=== PATIENT | male | born 1945 | race Hispanic/Latino ===

== ENCOUNTER 2021-12-03 16:07 | Inpatient (IN) | payer MEDICARE ==
[2021-12-04 06:01] LABS: Basophils % (Auto) 0.5 % (0.0-1.8); Eosinophils # (Auto) 0.2 K/mm3 (0.0-0.4); Eosinophils % (Auto) 2.4 % (0.0-4.3); Hematocrit 40.6 % (35.5-45.6); Hemoglobin 13.1 gm/dl (11.8-15.2); Lymphocytes # (Auto) 1.2 K/mm3 (1.2-5.4); Lymphocytes % (Auto) 19.4 % (13.4-35.0); Mean Corpuscular HGB Conc 32 % (32-34); Mean Corpuscular Volume 83 fl (84-94); Monocytes # (Auto) 0.6 K/mm3 (0.0-0.8); Monocytes % (Auto) 10.1 % (0.0-7.3); Platelet Count 298 K/mm3 (140-440); Red Blood Count 4.91 M/mm3 (3.65-5.03); Red Cell Distribution Width 16.2 % (13.2-15.2)
[2021-12-04 06:19] LABS: Calcium 9.4 mg/dL (8.4-10.2); Chol/HDL Ratio 2.81 %
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
[2021-12-04] MEDS ORDERED: NON-FORMULARY EACH (Paroxetine Hcl [Paroxetine] 40 MG Tablet) PO SCH (10:00)
[2021-12-04] MEDS ORDERED: metFORMIN 500 MG TAB PO SCH (10:00)
[2021-12-04] MEDS ORDERED: NON-FORMULARY EACH (Rosuvastatin Calcium [Crestor] 20 MG Tablet) PO SCH (10:00)
[2021-12-04] MEDS ORDERED: NON-FORMULARY EACH (Sitagliptin Phosphate [Januvia] 100 MG Tablet) PO SCH (10:00)
[2021-12-04] MEDS ORDERED: FENOFIBRATE MICRONIZED 134 MG PO SCH (10:00)
[2021-12-04] MEDS ORDERED: GLIMEPIRIDE 2 MG TAB PO SCH (10:00)
[2021-12-04] MEDS: FAMOTIDINE 20 MG TAB PO SCH (10:11)
[2021-12-04] MEDS: FUROSEMIDE 40 MG TAB PO SCH (10:11)
[2021-12-04] MEDS: MONTELUKAST 10 MG TAB PO SCH (10:11)
[2021-12-04] MEDS: PARoxetine 20 MG TAB PO SCH (10:11)
[2021-12-04] MEDS: PANTOPRAZOLE 40 MG TAB PO SCH (10:11)
[2021-12-04] MEDS: SPIRONOLACTONE 25 MG TAB PO SCH (10:12)
[2021-12-04] MEDS: carvediloL 6.25 MG TAB PO SCH ×2 (10:12→21:52)
[2021-12-04] MEDS: FENOFIBRATE 145 MG TAB PO SCH (10:13)
[2021-12-04] MEDS: LINAGLIPTIN 5 MG TAB PO SCH (12:47)
[2021-12-04] MEDS: traZODone 50 MG TAB PO SCH (21:51)
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
[2021-12-05] MEDS: MONTELUKAST 10 MG TAB PO SCH (09:31)
[2021-12-05] MEDS: FUROSEMIDE 40 MG TAB PO SCH (09:31)
[2021-12-05] MEDS: PARoxetine 20 MG TAB PO SCH (09:32)
[2021-12-05] MEDS: carvediloL 6.25 MG TAB PO SCH ×2 (09:32→21:05)
[2021-12-05] MEDS: SPIRONOLACTONE 25 MG TAB PO SCH (09:32)
[2021-12-05] MEDS: FENOFIBRATE 145 MG TAB PO SCH (09:32)
[2021-12-05] MEDS: PANTOPRAZOLE 40 MG TAB PO SCH (09:32)
--- NOTE | 2021-12-05 09:32 | Progress Note ---
Subjective Date of service: 12/05/21 Principal diagnosis: MDD Subjective Comment: The patient was seen today. He is calm, and cooperative. He says he slept well. He denies SI/HI. He says "I ain't been trying to hurt myself." He denies hallucinations. REVIEW OF SYSTEMS Unable to assess MENTAL STATUS EXAMINATION Unable to assess Assessment and Plan (1) MDD Current Visit: Yes Status: Acute Treatment Plan Patient admitted for inpatient psychiatric evaluation, medication adjustment and close monitoring The patient's behavior, mood, sleep and appetite will be closely monitored. Patient enrolled in individual and group therapeutic sessions and encouraged to attend. Patient provided with a safe and structured environment. Patient's physical health needs will be addressed by the Hospitalist. Hospitalist Consulted Labs including CBC, CMP, Lipid profile and Hemoglobin A1C levels ordered for baseline reference Social Assessment will be completed and the City Editor will work with patient and family to ensure a suitable and safe disposition Medication adjustment will be made as clinically indicated Continued home meds Usual Wellness Jain/Preservation: - Start Trazodone 50 mg po QHS & 50 mg po QHS PRN between 10 PM & 2 AM for insomnia - Start Melatonin 5 mg po QHS to promote circadian rhythm The patient agreed on the treatment plan, understood the risk, benefit, alternative treatment, potential consequence of no treatment, and gave informed consent. Estimated days: Post hospital care: primary care provider, psychiatric provider Case staffed with Dr. Dejesus Medications and Allergies Allergies Allergy/AdvReac Type Severity Reaction Status Date / Time No Known Allergies Allergy Unverified 12/03/21 16:09 Home Medications Medication Instructions Recorded Confirmed Last Taken Type Amoxicillin/K Clav Tab [Augmentin 1 tab PO Q12HR 12/04/21 12/04/21 12/03/21 History 875 mg] Apixaban [Eliquis] 5 mg PO BID 12/04/21 12/04/21 Unknown History Famotidine [Acid-Pep] 20 mg PO QDAY 12/04/21 12/04/21 Unknown History Fenofibrate,Micronized 134 mg PO QDAY 12/04/21 12/04/21 Unknown History [Fenofibrate] Furosemide [Lasix] 40 mg PO QDAY 12/04/21 12/04/21 Unknown History Glimepiride [Amaryl] 2 mg PO QDAY 12/04/21 12/04/21 Unknown History Montelukast [Singulair] 10 mg PO QDAY 12/04/21 12/04/21 Unknown History PARoxetine HCL [PARoxetine] 40 mg PO QA 12/04/21 12/04/21 Unknown History Pantoprazole Sodium 40 mg PO QDAY 12/04/21 12/04/21 Unknown History Rosuvastatin Calcium [Crestor] 20 mg PO QDAY 12/04/21 12/04/21 Unknown History Sitagliptin Phosphate [Januvia] 100 mg PO QDAY 12/04/21 12/04/21 Unknown History Spironolactone [Aldactone] 25 mg PO QDAY 12/04/21 12/04/21 Unknown History carvediloL [Coreg] 6.25 mg PO BID 12/04/21 12/04/21 Unknown History metFORMIN [Glucophage] 1,000 mg PO QDAY 12/04/21 12/04/21 Unknown History traZODone [Desyrel] 150 mg PO QHS 12/04/21 12/04/21 Unknown History Active Meds: Active Medications Amoxicillin/Clavulanate Potassium (Amoxicillin/K Clav 875/125mg Tab) 1 each PO Q12HR [facility]; Protocol Atorvastatin Calcium (Atorvastatin 40 Mg Tab) 40 mg PO QHS [facility] Last Admin: 12/04/21 21:52 Dose: 40 mg Carvedilol (Carvedilol 6.25 Mg Tab) 6.25 mg PO BID [facility] Last Admin: 12/04/21 21:52 Dose: 6.25 mg Famotidine (Famotidine 20 Mg Tab) 20 mg PO QDAY [facility] Last Admin: 12/04/21 10:11 Dose: 20 mg Fenofibrate (Fenofibrate 145 Mg Tab) 145 mg PO DAILY [facility] Last Admin: 12/04/21 10:13 Dose: 145 mg Furosemide (Furosemide 40 Mg Tab) 40 mg PO QDAY [facility] Last Admin: 12/04/21 10:11 Dose: 40 mg Glimepiride (Glimepiride 2 Mg Tab) 2 mg PO QDDIAB [facility] Linagliptin (Linagliptin 5 Mg Tab) 5 mg PO QDAY [facility] Last Admin: 12/04/21 12:47 Dose: 5 mg Metformin HCl (Metformin 500 Mg Tab) 1,000 mg PO QDDIAB [facility] Montelukast Sodium (Montelukast 10 Mg Tab) 10 mg PO QDAY [facility] Last Admin: 12/04/21 10:11 Dose: 10 mg Pantoprazole Sodium (Pantoprazole 40 Mg Tab) 40 mg PO QDAY [facility] Last Admin: 12/04/21 10:11 Dose: 40 mg Paroxetine HCl (Paroxetine 20 Mg Tab) 40 mg PO QAM [facility] Last Admin: 12/04/21 10:11 Dose: 40 mg Spironolactone (Spironolactone 25 Mg Tab) 25 mg PO QDAY [facility] Last Admin: 12/04/21 10:12 Dose: 25 mg Trazodone HCl (Trazodone 50 Mg Tab) 150 mg PO QHS [facility] Last Admin: 12/04/21 21:51 Dose: 150 mg Results - Results Labs/Vitals: Laboratory Last Values WBC 6.3 K/mm3 (4.5-11.0) 12/04/21 05:19 RBC 4.91 M/mm3 (3.65-5.03) 12/04/21 05:19 Hgb 13.1 gm/dl (11.8-15.2) 12/04/21 05:19 Hct 40.6 % (35.5-45.6) 12/04/21 05:19 MCV 83 fl (84-94) L 12/04/21 05:19 MCH 27 pg (28-32) L 12/04/21 05:19 MCHC 32 % (32-34) 12/04/21 05:19 RDW 16.2 % (13.2-15.2) H 12/04/21 05:19 Plt Count 298 K/mm3 (140-440) 12/04/21 05:19 Lymph % (Auto) 19.4 % (13.4-35.0) 12/04/21 05:19 [place] % (Auto) 10.1 % (0.0-7.3) H 12/04/21 05:19 Eos % (Auto) 2.4 % (0.0-4.3) 12/04/21 05:19 Baso % (Auto) 0.5 % (0.0-1.8) 12/04/21 05:19 Lymph # (Auto) 1.2 K/mm3 (1.2-5.4) 12/04/21 05:19 [place] # (Auto) 0.6 K/mm3 (0.0-0.8) 12/04/21 05:19 Eos # (Auto) 0.2 K/mm3 (0.0-0.4) 12/04/21 05:19 Baso # (Auto) 0.0 K/mm3 (0.0-0.1) 12/04/21 05:19 Seg Neutrophils % 67.6 % (40.0-70.0) 12/04/21 05:19 Seg Neutrophils # 4.2 K/mm3 (1.8-7.7) 12/04/21 05:19 Sodium 141 mmol/L (137-145) 12/04/21 05:19 Potassium 3.8 mmol/L (3.6-5.0) 12/04/21 05:19 Chloride 105.4 mmol/L (98-107) 12/04/21 05:19 Carbon Dioxide 24 mmol/L (22-30) 12/04/21 05:19 Anion Gap 15 mmol/L 12/04/21 05:19 BUN 23 mg/dL (9-20) H 12/04/21 05:19 Creatinine 1.2 mg/dL (0.8-1.3) 12/04/21 05:19 Estimated GFR 59 ml/min 12/04/21 05:19 BUN/Creatinine Ratio 19 % 12/04/21 05:19 Glucose 140 mg/dL (75-100) H 12/04/21 05:19 POC Glucose 137 mg/dL (70-105) H 12/05/21 07:22 Hemoglobin A1c 5.7 % (4-6) 12/04/21 05:19 Calcium 9.4 mg/dL (8.4-10.2) 12/04/21 05:19 Total Bilirubin 0.40 mg/dL (0.1-1.2) 12/04/21 05:19 AST 15 units/L (5-40) 12/04/21 05:19 ALT 9 units/L (7-56) 12/04/21 05:19 Alkaline Phosphatase 48 units/L (35-129) 12/04/21 05:19 Total Protein 7.1 g/dL (6.3-8.2) 12/04/21 05:19 Albumin 4.0 g/dL (3.9-5) 03/05/22 05:19 Albumin/Globulin Ratio 1.3 % 12/04/21 05:19 Triglycerides 76 mg/dL (2-149) 12/04/21 05:19 Cholesterol 135 mg/dL (50-199) 12/04/21 05:19 LDL Cholesterol Direct 70 mg/dL (50-130) 12/04/21 05:19 HDL Cholesterol 48 mg/dL (40-59) 12/04/21 05:19 Cholesterol/HDL Ratio 2.81 % 12/04/21 05:19 TSH 1.110 mlU/mL (0.270-4.200) 12/04/21 05:19 Last Vital Signs Temp 97.4 F L 12/05/21 08:21 Pulse 103 H 12/05/21 08:21 Resp 18 12/05/21 08:21 BP 111/63 12/05/21 08:21 Pulse Ox 97 12/05/21 08:21
[2021-12-05] MEDS: metFORMIN 500 MG TAB PO SCH (09:33)
[2021-12-05] MEDS: FAMOTIDINE 20 MG TAB PO SCH (09:33)
[2021-12-05] MEDS: GLIMEPIRIDE 2 MG TAB PO SCH (09:34)
[2021-12-05] MEDS ORDERED: APIXABAN 5 MG TAB PO SCH (10:00)
[2021-12-05] MEDS: LINAGLIPTIN 5 MG TAB PO SCH (11:21)
[2021-12-05] MEDS: AMOXICILLIN/K CLAV 875/125MG TAB PO SCH ×2 (11:21→21:05)
--- NOTE | 2021-12-05 19:18 | Progress Note ---
Assessment and Plan - Patient Problems (1) Vascular dementia Current Visit: Yes Status: Acute Qualifiers: Dementia behavioral disturbance: with behavioral disturbance Qualified Code(s): F01.51 - Vascular dementia with behavioral disturbance Plan to address problem: Verbal prompting, verbal redirection, benzodiazepine therapy as clinically indicated. (2) GERD (gastroesophageal reflux disease) Current Visit: Yes Status: Chronic Qualifiers: Esophagitis presence: without esophagitis Qualified Code(s): K21.9 - Gastro-esophageal reflux disease without esophagitis Plan to address problem: PPI therapy, supportive care. (3) Hyperlipidemia Current Visit: Yes Status: Chronic Qualifiers: Hyperlipidemia type: mixed hyperlipidemia Qualified Code(s): E78.2 - Mixed hyperlipidemia Plan to address problem: Low-cholesterol diet, lipid panel. (4) Hypertension Current Visit: Yes Status: Chronic Qualifiers: Hypertension type: primary hypertension Qualified Code(s): I10 - Essential (primary) hypertension Plan to address problem: Monitor blood pressure every shift, continue medical management (5) Bipolar disorder Current Visit: Yes Status: Acute Plan to address problem: Continue medical management as per mental health team (6) Cerebral atherosclerosis Current Visit: Yes Status: Acute Plan to address problem: Risk factor reduction, continue antiplatelet therapy, (7) Advance care planning Current Visit: Yes Status: Acute Plan to address problem: Disease education conducted, care plan discussed, diagnoses discussed, prognosis discussed, patient is full code. +30 minutes. History Interval history: 76 YO Male with Vascular Dementia with Behavioral Disturbance, Cerebral Atherosclerosis, HTN, DM, GERD,HLD, Bipolar Disorder, Schizophrenia, currently on therapeutic anticoagulation admitted to [facility] for psychiatric stabilization. Consult placed by Dr. Phillips for medical management. Pt seen and evaluated in recreation room. Patient has diminished cognition but appears to be at baseline level of cognition and function. NO reported nursing events. Hospitalist Physical - Constitutional Vitals: Temp Pulse Resp BP Pulse Ox 97.4 F L 103 H 18 111/63 97 12/05/21 08:21 12/05/21 09:32 12/05/21 08:21 12/05/21 09:32 12/05/21 08:21 General appearance: Present: no acute distress, well-nourished - EENT Eyes: Present: PERRL ENT: hearing decreased - Neck Neck: Present: supple - Respiratory Respiratory effort: normal Respiratory: bilateral: CTA - Cardiovascular Rhythm: regular Heart Sounds: Present: S1 & S2 - Extremities Extremities: no ischemia Peripheral Pulses: within normal limits - Abdominal General gastrointestinal: soft, non-tender, non-distended - Integumentary Integumentary: Present: clear - Psychiatric Psychiatric: no intact judgment & insight, no memory intact, cooperative - Neurologic Neurologic: CNII-XII intact Results - Labs CBC & Chem 7: 12/04/21 05:19 12/04/21 05:19 Labs: Laboratory Last Values WBC 6.3 K/mm3 (4.5-11.0) 12/04/21 05:19 RBC 4.91 M/mm3 (3.65-5.03) 12/04/21 05:19 Hgb 13.1 gm/dl (11.8-15.2) 12/04/21 05:19 Hct 40.6 % (35.5-45.6) 12/04/21 05:19 MCV 83 fl (84-94) L 12/04/21 05:19 MCH 27 pg (28-32) L 12/04/21 05:19 MCHC 32 % (32-34) 12/04/21 05:19 RDW 16.2 % (13.2-15.2) H 12/04/21 05:19 Plt Count 298 K/mm3 (140-440) 12/04/21 05:19 Lymph % (Auto) 19.4 % (13.4-35.0) 12/04/21 05:19 [place] % (Auto) 10.1 % (0.0-7.3) H 12/04/21 05:19 Eos % (Auto) 2.4 % (0.0-4.3) 12/04/21 05:19 Baso % (Auto) 0.5 % (0.0-1.8) 12/04/21 05:19 Lymph # (Auto) 1.2 K/mm3 (1.2-5.4) 12/04/21 05:19 [place] # (Auto) 0.6 K/mm3 (0.0-0.8) 12/04/21 05:19 Eos # (Auto) 0.2 K/mm3 (0.0-0.4) 12/04/21 05:19 Baso # (Auto) 0.0 K/mm3 (0.0-0.1) 12/04/21 05:19 Seg Neutrophils % 67.6 % (40.0-70.0) 12/04/21 05:19 Seg Neutrophils # 4.2 K/mm3 (1.8-7.7) 12/04/21 05:19 Sodium 141 mmol/L (137-145) 12/04/21 05:19 Potassium 3.8 mmol/L (3.6-5.0) 12/04/21 05:19 Chloride 105.4 mmol/L (98-107) 12/04/21 05:19 Carbon Dioxide 24 mmol/L (22-30) 12/04/21 05:19 Anion Gap 15 mmol/L 12/04/21 05:19 BUN 23 mg/dL (9-20) H 12/04/21 05:19 Creatinine 1.2 mg/dL (0.8-1.3) 12/04/21 05:19 Estimated GFR 59 ml/min 12/04/21 05:19 BUN/Creatinine Ratio 19 % 12/04/21 05:19 Glucose 140 mg/dL (75-100) H 12/04/21 05:19 POC Glucose 137 mg/dL (70-105) H 12/05/21 07:22 Hemoglobin A1c 5.7 % (4-6) 12/04/21 05:19 Calcium 9.4 mg/dL (8.4-10.2) 12/04/21 05:19 Total Bilirubin 0.40 mg/dL (0.1-1.2) 12/04/21 05:19 AST 15 units/L (5-40) 12/04/21 05:19 ALT 9 units/L (7-56) 12/04/21 05:19 Alkaline Phosphatase 48 units/L (35-129) 12/04/21 05:19 Total Protein 7.1 g/dL (6.3-8.2) 12/04/21 05:19 Albumin 4.0 g/dL (3.9-5) 12/04/21 05:19 Albumin/Globulin Ratio 1.3 % 12/04/21 05:19 Triglycerides 76 mg/dL (2-149) 12/04/21 05:19 Cholesterol 135 mg/dL (50-199) 12/04/21 05:19 LDL Cholesterol Direct 70 mg/dL (50-130) 12/04/21 05:19 HDL Cholesterol 48 mg/dL (40-59) 12/04/21 05:19 Cholesterol/HDL Ratio 2.81 % 12/04/21 05:19 TSH 1.110 mlU/mL (0.270-4.200) 12/04/21 05:19 [place]/IV: Voiding Method Diaper Active Medications - Current Medications Current Medications: Generic Name Dose Route Start Last Admin Trade Name Freq PRN Reason Stop Dose Admin Amoxicillin/Clavulanate Potassium 1 each 12/05/21 10:00 12/05/21 11:21 Amoxicillin/K Clav 875/125mg Tab PO 12/10/21 23:59 1 each Q12HR TANIYA Administration Protocol Apixaban 5 mg 12/05/21 22:00 Apixaban 5 Mg Tab PO Q12HR TANIYA Protocol Atorvastatin Calcium 40 mg 12/04/21 22:00 12/04/21 21:52 Atorvastatin 40 Mg Tab PO 40 mg QHS TANIYA Administration Carvedilol 6.25 mg 12/04/21 10:00 12/05/21 09:32 Carvedilol 6.25 Mg Tab PO 6.25 mg BID TANIYA Administration Famotidine 20 mg 12/04/21 10:00 12/05/21 09:33 Famotidine 20 Mg Tab PO 20 mg QDAY TANIYA Administration Fenofibrate 145 mg 12/04/21 10:00 12/05/21 09:32 Fenofibrate 145 Mg Tab PO 145 mg DAILY TANIYA Administration Furosemide 40 mg 12/04/21 10:00 12/05/21 09:31 Furosemide 40 Mg Tab PO 40 mg QDAY TANIYA Administration Glimepiride 2 mg 12/05/21 08:00 12/05/21 09:34 Glimepiride 2 Mg Tab PO 2 mg QDDIAB TANIYA Administration Linagliptin 5 mg 12/04/21 10:00 12/05/21 11:21 Linagliptin 5 Mg Tab PO 5 mg QDAY TANIYA Administration Metformin HCl 1,000 mg 12/05/21 08:00 12/05/21 09:33 Metformin 500 Mg Tab PO 1,000 mg QDDIAB TANIYA Administration Montelukast Sodium 10 mg 12/04/21 10:00 12/05/21 09:31 Montelukast 10 Mg Tab PO 10 mg QDAY TANIYA Administration Pantoprazole Sodium 40 mg 12/04/21 10:00 12/05/21 09:32 Pantoprazole 40 Mg Tab PO 40 mg QDAY TANIYA Administration Paroxetine HCl 40 mg 12/04/21 10:00 12/05/21 09:32 Paroxetine 20 Mg Tab PO 40 mg QAM TANIYA Administration Spironolactone 25 mg 12/04/21 10:00 12/05/21 09:32 Spironolactone 25 Mg Tab PO 25 mg QDAY TANIYA Administration Trazodone HCl 150 mg 12/04/21 22:00 12/04/21 21:51 Trazodone 50 Mg Tab PO 150 mg QHS TANIYA Administration
[2021-12-05] MEDS: traZODone 50 MG TAB PO SCH (21:06)
[2021-12-05] MEDS: APIXABAN 5 MG TAB PO SCH (21:07)
--- NOTE | 2021-12-06 08:53 | Progress Note ---
Subjective Date of service: 12/06/21 Principal diagnosis: MDD Subjective Comment: The patient was seen this morning resting in bed. He states he is doing alright. The patient states he slept all night. He states depression as " alright." unable to rate. He denies any current suicidal homicidal ideation and denies hallucinations. REVIEW OF SYSTEMS Unable to assess MENTAL STATUS EXAMINATION Unable to assess Assessment and Plan (1) MDD Current Visit: Yes Status: Acute Treatment Plan Patient admitted for inpatient psychiatric evaluation, medication adjustment and close monitoring The patient's behavior, mood, sleep and appetite will be closely monitored. Patient enrolled in individual and group therapeutic sessions and encouraged to attend. Patient provided with a safe and structured environment. Patient's physical health needs will be addressed by the Hospitalist. Hospitalist Consulted Labs including CBC, CMP, Lipid profile and Hemoglobin A1C levels ordered for baseline reference Social Assessment will be completed and the Door Attendant will work with patient and family to ensure a suitable and safe disposition Medication adjustment will be made as clinically indicated Continued home meds [employer]: - Start Trazodone 50 mg po QHS & 50 mg po QHS PRN between 10 PM & 2 AM for insomnia - Start Melatonin 5 mg po QHS to promote circadian rhythm The patient agreed on the treatment plan, understood the risk, benefit, alternative treatment, potential consequence of no treatment, and gave informed consent. Estimated days: Post hospital care: primary care provider, psychiatric provider Case staffed with Dr. Dejesus Medications and Allergies Medications and Allergies Allergies Allergy/AdvReac Type Severity Reaction Status Date / Time No Known Allergies Allergy Unverified 12/03/21 16:09 Home Medications Medication Instructions Recorded Confirmed Last Taken Type Amoxicillin/K Clav Tab [Augmentin 1 tab PO Q12HR 12/04/21 12/04/21 12/03/21 History 875 mg] Apixaban [Eliquis] 5 mg PO BID 12/04/21 12/04/21 Unknown History Famotidine [Acid-Pep] 20 mg PO QDAY 12/04/21 12/04/21 Unknown History Fenofibrate,Micronized 134 mg PO QDAY 12/04/21 12/04/21 Unknown History [Fenofibrate] Furosemide [Lasix] 40 mg PO QDAY 12/04/21 12/04/21 Unknown History Glimepiride [Amaryl] 2 mg PO QDAY 12/04/21 12/04/21 Unknown History Montelukast [Singulair] 10 mg PO QDAY 12/04/21 12/04/21 Unknown History PARoxetine HCL [PARoxetine] 40 mg PO QAM 12/04/21 12/04/21 Unknown History Pantoprazole Sodium 40 mg PO QDAY 12/04/21 12/04/21 Unknown History Rosuvastatin Calcium [Crestor] 20 mg PO QDAY 12/04/21 12/04/21 Unknown History Sitagliptin Phosphate [Januvia] 100 mg PO QDAY 12/04/21 12/04/21 Unknown History Spironolactone [Aldactone] 25 mg PO QDAY 12/04/21 12/04/21 Unknown History carvediloL [Coreg] 6.25 mg PO BID 12/04/21 12/04/21 Unknown History metFORMIN [Glucophage] 1,000 mg PO QDAY 12/04/21 12/04/21 Unknown History traZODone [Desyrel] 150 mg PO QHS 12/04/21 12/04/21 Unknown History Active Meds: Active Medications Amoxicillin/Clavulanate Potassium (Amoxicillin/K Clav 875/125mg Tab) 1 each PO Q12HR [facility]; Protocol Stop: 12/10/21 23:59 Last Admin: 12/05/21 21:05 Dose: 1 each Apixaban (Apixaban 5 Mg Tab) 5 mg PO Q12HR [facility]; Protocol Last Admin: 12/05/21 21:07 Dose: 5 mg Atorvastatin Calcium (Atorvastatin 40 Mg Tab) 40 mg PO QHS [facility] Last Admin: 12/05/21 21:07 Dose: 40 mg Carvedilol (Carvedilol 6.25 Mg Tab) 6.25 mg PO BID [facility] Last Admin: 12/05/21 21:05 Dose: 6.25 mg Famotidine (Famotidine 20 Mg Tab) 20 mg PO QDAY [facility] Last Admin: 12/05/21 09:33 Dose: 20 mg Fenofibrate (Fenofibrate 145 Mg Tab) 145 mg PO DAILY [facility] Last Admin: 12/05/21 09:32 Dose: 145 mg Furosemide (Furosemide 40 Mg Tab) 40 mg PO QDAY [facility] Last Admin: 12/05/21 09:31 Dose: 40 mg Glimepiride (Glimepiride 2 Mg Tab) 2 mg PO QDDIAB [facility] Last Admin: 12/05/21 09:34 Dose: 2 mg Linagliptin (Linagliptin 5 Mg Tab) 5 mg PO QDAY [facility] Last Admin: 12/05/21 11:21 Dose: 5 mg Metformin HCl (Metformin 500 Mg Tab) 1,000 mg PO QDDIAB [facility] Last Admin: 12/05/21 09:33 Dose: 1,000 mg Montelukast Sodium (Montelukast 10 Mg Tab) 10 mg PO QDAY [facility] Last Admin: 12/05/21 09:31 Dose: 10 mg Pantoprazole Sodium (Pantoprazole 40 Mg Tab) 40 mg PO QDAY [facility] Last Admin: 12/05/21 09:32 Dose: 40 mg Paroxetine HCl (Paroxetine 20 Mg Tab) 40 mg PO QAM [facility] Last Admin: 12/05/21 09:32 Dose: 40 mg Spironolactone (Spironolactone 25 Mg Tab) 25 mg PO QDAY [facility] Last Admin: 12/05/21 09:32 Dose: 25 mg Trazodone HCl (Trazodone 50 Mg Tab) 150 mg PO QHS [facility] Last Admin: 12/05/21 21:06 Dose: 150 mg Results - Results Labs/Vitals: Laboratory Last Values WBC 6.3 K/mm3 (4.5-11.0) 12/04/21 05:19 RBC 4.91 M/mm3 (3.65-5.03) 12/04/21 05:19 Hgb 13.1 gm/dl (11.8-15.2) 12/04/21 05:19 Hct 40.6 % (35.5-45.6) 12/04/21 05:19 MCV 83 fl (84-94) L 12/04/21 05:19 MCH 27 pg (28-32) L 12/04/21 05:19 MCHC 32 % (32-34) 12/04/21 05:19 RDW 16.2 % (13.2-15.2) H 12/04/21 05:19 Plt Count 298 K/mm3 (140-440) 12/04/21 05:19 Lymph % (Auto) 19.4 % (13.4-35.0) 12/04/21 05:19 [place] % (Auto) 10.1 % (0.0-7.3) H 12/04/21 05:19 Eos % (Auto) 2.4 % (0.0-4.3) 12/04/21 05:19 Baso % (Auto) 0.5 % (0.0-1.8) 12/04/21 05:19 Lymph # (Auto) 1.2 K/mm3 (1.2-5.4) 12/04/21 05:19 [place] # (Auto) 0.6 K/mm3 (0.0-0.8) 12/04/21 05:19 Eos # (Auto) 0.2 K/mm3 (0.0-0.4) 12/04/21 05:19 Baso # (Auto) 0.0 K/mm3 (0.0-0.1) 12/04/21 05:19 Seg Neutrophils % 67.6 % (40.0-70.0) 12/04/21 05:19 Seg Neutrophils # 4.2 K/mm3 (1.8-7.7) 12/04/21 05:19 Sodium 141 mmol/L (137-145) 12/04/21 05:19 Potassium 3.8 mmol/L (3.6-5.0) 12/04/21 05:19 Chloride 105.4 mmol/L (98-107) 12/04/21 05:19 Carbon Dioxide 24 mmol/L (22-30) 12/04/21 05:19 Anion Gap 15 mmol/L 12/04/21 05:19 BUN 23 mg/dL (9-20) H 12/04/21 05:19 Creatinine 1.2 mg/dL (0.8-1.3) 12/04/21 05:19 Estimated GFR 59 ml/min 12/04/21 05:19 BUN/Creatinine Ratio 19 % 12/04/21 05:19 Glucose 140 mg/dL (75-100) H 12/04/21 05:19 POC Glucose 125 mg/dL (70-105) H 12/06/21 08:20 Hemoglobin A1c 5.7 % (4-6) 12/04/21 05:19 Calcium 9.4 mg/dL (8.4-10.2) 12/04/21 05:19 Total Bilirubin 0.40 mg/dL (0.1-1.2) 12/04/21 05:19 AST 15 units/L (5-40) 12/04/21 05:19 ALT 9 units/L (7-56) 12/04/21 05:19 Alkaline Phosphatase 48 units/L (35-129) 12/04/21 05:19 Total Protein 7.1 g/dL (6.3-8.2) 12/04/21 05:19 Albumin 4.0 g/dL (3.9-5) 12/04/21 05:19 Albumin/Globulin Ratio 1.3 % 12/04/21 05:19 Triglycerides 76 mg/dL (2-149) 12/04/21 05:19 Cholesterol 135 mg/dL (50-199) 12/04/21 05:19 LDL Cholesterol Direct 70 mg/dL (50-130) 12/04/21 05:19 HDL Cholesterol 48 mg/dL (40-59) 12/04/21 05:19 Cholesterol/HDL Ratio 2.81 % 12/04/21 05:19 TSH 1.110 mlU/mL (0.270-4.200) 12/04/21 05:19 Last Vital Signs Temp 98.5 F 12/05/21 19:12 Pulse 100 H 12/05/21 21:05 Resp 18 12/05/21 19:12 BP 136/65 12/05/21 21:05 Pulse Ox 95 12/05/21 19:12
[2021-12-06] MEDS: LINAGLIPTIN 5 MG TAB PO SCH (11:13)
[2021-12-06] MEDS: APIXABAN 5 MG TAB PO SCH ×2 (11:13→21:13)
[2021-12-06] MEDS: FAMOTIDINE 20 MG TAB PO SCH (11:13)
[2021-12-06] MEDS: MONTELUKAST 10 MG TAB PO SCH (11:13)
[2021-12-06] MEDS: PARoxetine 20 MG TAB PO SCH (11:14)
[2021-12-06] MEDS: AMOXICILLIN/K CLAV 875/125MG TAB PO SCH ×2 (11:14→21:14)
[2021-12-06] MEDS: PANTOPRAZOLE 40 MG TAB PO SCH (11:14)
[2021-12-06] MEDS: metFORMIN 500 MG TAB PO SCH (11:14)
[2021-12-06] MEDS: GLIMEPIRIDE 2 MG TAB PO SCH (11:15)
[2021-12-06] MEDS: FENOFIBRATE 145 MG TAB PO SCH (11:15)
[2021-12-06] MEDS: FUROSEMIDE 40 MG TAB PO SCH (11:15)
[2021-12-06] MEDS: SPIRONOLACTONE 25 MG TAB PO SCH (11:16)
[2021-12-06] MEDS: carvediloL 6.25 MG TAB PO SCH ×2 (11:19→21:13)
[2021-12-06] MEDS: traZODone 50 MG TAB PO SCH (21:14)
[2021-12-07] MEDS: GLIMEPIRIDE 2 MG TAB PO SCH (08:09)
[2021-12-07] MEDS: metFORMIN 500 MG TAB PO SCH (08:09)
[2021-12-07] MEDS: PANTOPRAZOLE 40 MG TAB PO SCH (09:23)
[2021-12-07] MEDS: MONTELUKAST 10 MG TAB PO SCH (09:23)
[2021-12-07] MEDS: PARoxetine 20 MG TAB PO SCH (09:23)
[2021-12-07] MEDS: SPIRONOLACTONE 25 MG TAB PO SCH (09:23)
[2021-12-07] MEDS: FUROSEMIDE 40 MG TAB PO SCH (09:23)
[2021-12-07] MEDS: AMOXICILLIN/K CLAV 875/125MG TAB PO SCH ×2 (09:24→22:02)
[2021-12-07] MEDS: LINAGLIPTIN 5 MG TAB PO SCH (09:24)
[2021-12-07] MEDS: FAMOTIDINE 20 MG TAB PO SCH (09:24)
[2021-12-07] MEDS: APIXABAN 5 MG TAB PO SCH ×2 (09:25→22:04)
[2021-12-07] MEDS: carvediloL 6.25 MG TAB PO SCH ×2 (09:25→22:02)
[2021-12-07] MEDS: FENOFIBRATE 145 MG TAB PO SCH (09:26)
--- NOTE | 2021-12-07 09:30 | Progress Note ---
Subjective Date of service: 12/07/21 Principal diagnosis: MDD Subjective Comment: 12/07/21: The patient was seen this morning. He is isolative. He states he is doing well. The patient reports sleep and appetite as good. He denies any current suicidal homicidal ideation and denies hallucinations. 12/06/21:The patient was seen this morning resting in bed. He states he is doing alright. The patient states he slept all night. He states depression as " alright." unable to rate. He denies any current suicidal homicidal ideation and denies hallucinations. REVIEW OF SYSTEMS Unable to assess MENTAL STATUS EXAMINATION Unable to assess Assessment and Plan (1) MDD Current Visit: Yes Status: Acute Treatment Plan Patient admitted for inpatient psychiatric evaluation, medication adjustment and close monitoring The patient's behavior, mood, sleep and appetite will be closely monitored. Patient enrolled in individual and group therapeutic sessions and encouraged to attend. Patient provided with a safe and structured environment. Patient's physical health needs will be addressed by the Hospitalist. Hospitalist Consulted Labs including CBC, CMP, Lipid profile and Hemoglobin A1C levels ordered for baseline reference Social Assessment will be completed and the Soil Science Technical Officer will work with shreyas mon and family to ensure a suitable and safe disposition Medication adjustment will be made as clinically indicated Continued home meds [employer]ervation: - Start Trazodone 50 mg po QHS & 50 mg po QHS PRN between 10 PM & 2 AM for insomnia - Start Melatonin 5 mg po QHS to promote circadian rhythm The patient agreed on the treatment plan, understood the risk, benefit, alternative treatment, potential consequence of no treatment, and gave informed consent. Estimated days: Post hospital care: primary care provider, psychiatric provider Case staffed with Dr. Dejesus Medications and Allergies Medications and Allergies Allergies Allergy/AdvReac Type Severity Reaction Status Date / Time No Known Allergies Allergy Unverified 12/03/21 16:09 Home Medications Medication Instructions Recorded Confirmed Last Taken Type Amoxicillin/K Clav Tab [Augmentin 1 tab PO Q12HR 12/04/21 12/04/21 12/03/21 History 875 mg] Apixaban [Eliquis] 5 mg PO BID 12/04/21 12/04/21 Unknown History Famotidine [Acid-Pep] 20 mg PO QDAY 12/04/21 12/04/21 Unknown History Fenofibrate,Micronized 134 mg PO QDAY 12/04/21 12/04/21 Unknown History [Fenofibrate] Furosemide [Lasix] 40 mg PO QDAY 12/04/21 12/04/21 Unknown History Glimepiride [Amaryl] 2 mg PO QDAY 12/04/21 12/04/21 Unknown History Montelukast [Singulair] 10 mg PO QDAY 12/04/21 12/04/21 Unknown History PARoxetine HCL [PARoxetine] 40 mg PO QA 12/04/21 12/04/21 Unknown History Pantoprazole Sodium 40 mg PO QDAY 12/04/21 12/04/21 Unknown History Rosuvastatin Calcium [Crestor] 20 mg PO QDAY 12/04/21 12/04/21 Unknown History Sitagliptin Phosphate [Januvia] 100 mg PO QDAY 12/04/21 12/04/21 Unknown History Spironolactone [Aldactone] 25 mg PO QDAY 12/04/21 12/04/21 Unknown History carvediloL [Coreg] 6.25 mg PO BID 12/04/21 12/04/21 Unknown History metFORMIN [Glucophage] 1,000 mg PO QDAY 12/04/21 12/04/21 Unknown History traZODone [Desyrel] 150 mg PO QHS 12/04/21 12/04/21 Unknown History Active Meds: Active Medications Amoxicillin/Clavulanate Potassium (Amoxicillin/K Clav 875/125mg Tab) 1 each PO Q12HR [facility]; Protocol Stop: 12/10/21 23:59 Last Admin: 12/06/21 21:14 Dose: 1 each Apixaban (Apixaban 5 Mg Tab) 5 mg PO Q12HR [facility]; Protocol Last Admin: 12/06/21 21:13 Dose: 5 mg Atorvastatin Calcium (Atorvastatin 40 Mg Tab) 40 mg PO QHS [facility] Last Admin: 12/06/21 21:12 Dose: 40 mg Carvedilol (Carvedilol 6.25 Mg Tab) 6.25 mg PO BID [facility] Last Admin: 12/06/21 21:13 Dose: 6.25 mg Famotidine (Famotidine 20 Mg Tab) 20 mg PO QDAY [facility] Last Admin: 12/06/21 11:13 Dose: 20 mg Fenofibrate (Fenofibrate 145 Mg Tab) 145 mg PO DAILY [facility] Last Admin: 12/06/21 11:15 Dose: 145 mg Furosemide (Furosemide 40 Mg Tab) 40 mg PO QDAY [facility] Last Admin: 12/06/21 11:15 Dose: 40 mg Glimepiride (Glimepiride 2 Mg Tab) 2 mg PO QDDIAB [facility] Last Admin: 12/07/21 08:09 Dose: 2 mg Linagliptin (Linagliptin 5 Mg Tab) 5 mg PO QDAY [facility] Last Admin: 12/06/21 11:13 Dose: 5 mg Metformin HCl (Metformin 500 Mg Tab) 1,000 mg PO QDDIAB [facility] Last Admin: 12/07/21 08:09 Dose: 1,000 mg Montelukast Sodium (Montelukast 10 Mg Tab) 10 mg PO QDAY [facility] Last Admin: 12/06/21 11:13 Dose: 10 mg Pantoprazole Sodium (Pantoprazole 40 Mg Tab) 40 mg PO QDAY [facility] Last Admin: 12/06/21 11:14 Dose: 40 mg Paroxetine HCl (Paroxetine 20 Mg Tab) 40 mg PO QAM [facility] Last Admin: 12/06/21 11:14 Dose: 40 mg Spironolactone (Spironolactone 25 Mg Tab) 25 mg PO QDAY [facility] Last Admin: 12/06/21 11:16 Dose: Not Given Trazodone HCl (Trazodone 50 Mg Tab) 150 mg PO QHS [facility] Last Admin: 12/06/21 21:14 Dose: 150 mg Results - Results Labs/Vitals: Laboratory Last Values WBC 6.3 K/mm3 (4.5-11.0) 12/04/21 05:19 RBC 4.91 M/mm3 (3.65-5.03) 12/04/21 05:19 Hgb 13.1 gm/dl (11.8-15.2) 12/04/21 05:19 Hct 40.6 % (35.5-45.6) 12/04/21 05:19 MCV 83 fl (84-94) L 12/04/21 05:19 MCH 27 pg (28-32) L 12/04/21 05:19 MCHC 32 % (32-34) 12/04/21 05:19 RDW 16.2 % (13.2-15.2) H 12/04/21 05:19 Plt Count 298 K/mm3 (140-440) 12/04/21 05:19 Lymph % (Auto) 19.4 % (13.4-35.0) 12/04/21 05:19 [place] % (Auto) 10.1 % (0.0-7.3) H 12/04/21 05:19 Eos % (Auto) 2.4 % (0.0-4.3) 12/04/21 05:19 Baso % (Auto) 0.5 % (0.0-1.8) 12/04/21 05:19 Lymph # (Auto) 1.2 K/mm3 (1.2-5.4) 12/04/21 05:19 [place] # (Auto) 0.6 K/mm3 (0.0-0.8) 12/04/21 05:19 Eos # (Auto) 0.2 K/mm3 (0.0-0.4) 12/04/21 05:19 Baso # (Auto) 0.0 K/mm3 (0.0-0.1) 12/04/21 05:19 Seg Neutrophils % 67.6 % (40.0-70.0) 12/04/21 05:19 Seg Neutrophils # 4.2 K/mm3 (1.8-7.7) 12/04/21 05:19 Sodium 141 mmol/L (137-145) 12/04/21 05:19 Potassium 3.8 mmol/L (3.6-5.0) 12/04/21 05:19 Chloride 105.4 mmol/L (98-107) 12/04/21 05:19 Carbon Dioxide 24 mmol/L (22-30) 12/04/21 05:19 Anion Gap 15 mmol/L 12/04/21 05:19 BUN 23 mg/dL (9-20) H 12/04/21 05:19 Creatinine 1.2 mg/dL (0.8-1.3) 12/04/21 05:19 Estimated GFR 59 ml/min 12/04/21 05:19 BUN/Creatinine Ratio 19 % 12/04/21 05:19 Glucose 140 mg/dL (75-100) H 12/04/21 05:19 POC Glucose 163 mg/dL (70-105) H 12/07/21 06:06 Hemoglobin A1c 5.7 % (4-6) 12/04/21 05:19 Calcium 9.4 mg/dL (8.4-10.2) 12/04/21 05:19 Total Bilirubin 0.40 mg/dL (0.1-1.2) 12/04/21 05:19 AST 15 units/L (5-40) 12/04/21 05:19 ALT 9 units/L (7-56) 12/04/21 05:19 Alkaline Phosphatase 48 units/L (35-129) 12/04/21 05:19 Total Protein 7.1 g/dL (6.3-8.2) 12/04/21 05:19 Albumin 4.0 g/dL (3.9-5) 12/04/21 05:19 Albumin/Globulin Ratio 1.3 % 12/04/21 05:19 Triglycerides 76 mg/dL (2-149) 12/04/21 05:19 Cholesterol 135 mg/dL (50-199) 12/04/21 05:19 LDL Cholesterol Direct 70 mg/dL (50-130) 12/04/21 05:19 HDL Cholesterol 48 mg/dL (40-59) 12/04/21 05:19 Cholesterol/HDL Ratio 2.81 % 12/04/21 05:19 TSH 1.110 mlU/mL (0.270-4.200) 12/04/21 05:19 Last Vital Signs Temp 97.4 F L 12/07/21 07:41 Pulse 100 H 12/07/21 07:41 Resp 16 12/07/21 07:41 BP 118/57 12/07/21 07:41 Pulse Ox 96 12/07/21 07:41
[2021-12-07] MEDS: traZODone 50 MG TAB PO SCH (22:02)
[2021-12-08] MEDS: metFORMIN 500 MG TAB PO SCH (08:37)
[2021-12-08] MEDS: GLIMEPIRIDE 2 MG TAB PO SCH (08:37)
--- NOTE | 2021-12-08 09:33 | Progress Note ---
Subjective Date of service: 12/08/21 Principal diagnosis: MDD Subjective Comment: 12/08/21: The patient was seen in his room. He states he is doing well. The patient reports sleep and appetite as good. He denies any current suicidal homicidal ideation and denies hallucinations. 12/07/21: The patient was seen this morning. He is isolative. He states he is doing well. The patient reports sleep and appetite as good. He denies any current suicidal homicidal ideation and denies hallucinations. 12/06/21:The patient was seen this morning resting in bed. He states he is doing alright. The patient states he slept all night. He states depression as " alright." unable to rate. He denies any current suicidal homicidal ideation and denies hallucinations. REVIEW OF SYSTEMS Unable to assess MENTAL STATUS EXAMINATION Unable to assess Assessment and Plan (1) MDD Current Visit: Yes Status: Acute Treatment Plan Patient admitted for inpatient psychiatric evaluation, medication adjustment and close monitoring The patient's behavior, mood, sleep and appetite will be closely monitored. Patient enrolled in individual and group therapeutic sessions and encouraged to attend. Patient provided with a safe and structured environment. Patient's physical health needs will be addressed by the Hospitalist. Hospitalist Consulted Labs including CBC, CMP, Lipid profile and Hemoglobin A1C levels ordered for baseline reference Social Assessment will be completed and the Inter Com Installer will work with patient and family to ensure a suitable and safe disposition Medication adjustment will be made as clinically indicated Continued home meds Usual Wellness Yarsanism/Preservation: - Start Trazodone 50 mg po QHS & 50 mg po QHS PRN between 10 PM & 2 AM for insomnia - Start Melatonin 5 mg po QHS to promote circadian rhythm The patient agreed on the treatment plan, understood the risk, benefit, alternative treatment, potential consequence of no treatment, and gave informed consent. Estimated days: Post hospital care: primary care provider, psychiatric provider Case staffed with Dr. Dejesus Medications and Allergies Medications and Allergies Allergies Allergy/AdvReac Type Severity Reaction Status Date / Time No Known Allergies Allergy Unverified 12/03/21 16:09 Home Medications Medication Instructions Recorded Confirmed Last Taken Type Amoxicillin/K Clav Tab [Augmentin 1 tab PO Q12HR 12/04/21 12/04/21 12/03/21 History 875 mg] Apixaban [Eliquis] 5 mg PO BID 12/04/21 12/04/21 Unknown History Famotidine [Acid-Pep] 20 mg PO QDAY 12/04/21 12/04/21 Unknown History Fenofibrate,Micronized 134 mg PO QDAY 12/04/21 12/04/21 Unknown History [Fenofibrate] Furosemide [Lasix] 40 mg PO QDAY 12/04/21 12/04/21 Unknown History Glimepiride [Amaryl] 2 mg PO QDAY 12/04/21 12/04/21 Unknown History Montelukast [Singulair] 10 mg PO QDAY 12/04/21 12/04/21 Unknown History PARoxetine HCL [PARoxetine] 40 mg PO QAM 12/04/21 12/04/21 Unknown History Pantoprazole Sodium 40 mg PO QDAY 12/04/21 12/04/21 Unknown History Rosuvastatin Calcium [Crestor] 20 mg PO QDAY 12/04/21 12/04/21 Unknown History Sitagliptin Phosphate [Januvia] 100 mg PO QDAY 12/04/21 12/04/21 Unknown History Spironolactone [Aldactone] 25 mg PO QDAY 12/04/21 12/04/21 Unknown History carvediloL [Coreg] 6.25 mg PO BID 12/04/21 12/04/21 Unknown History metFORMIN [Glucophage] 1,000 mg PO QDAY 12/04/21 12/04/21 Unknown History traZODone [Desyrel] 150 mg PO QHS 12/04/21 12/04/21 Unknown History Active Meds: Active Medications Amoxicillin/Clavulanate Potassium (Amoxicillin/K Clav 875/125mg Tab) 1 each PO Q12HR [facility]; Protocol Stop: 12/10/21 23:59 Last Admin: 12/07/21 22:02 Dose: 1 each Apixaban (Apixaban 5 Mg Tab) 5 mg PO Q12HR [facility]; Protocol Last Admin: 12/07/21 22:04 Dose: 5 mg Atorvastatin Calcium (Atorvastatin 40 Mg Tab) 40 mg PO QHS [facility] Last Admin: 12/07/21 22:02 Dose: 40 mg Carvedilol (Carvedilol 6.25 Mg Tab) 6.25 mg PO BID [facility] Last Admin: 12/07/21 22:02 Dose: 6.25 mg Famotidine (Famotidine 20 Mg Tab) 20 mg PO QDAY [facility] Last Admin: 12/07/21 09:24 Dose: 20 mg Fenofibrate (Fenofibrate 145 Mg Tab) 145 mg PO DAILY [facility] Last Admin: 12/07/21 09:26 Dose: 145 mg Furosemide (Furosemide 40 Mg Tab) 40 mg PO QDAY [facility] Last Admin: 12/07/21 09:23 Dose: 40 mg Glimepiride (Glimepiride 2 Mg Tab) 2 mg PO QDDIAB [facility] Last Admin: 12/08/21 08:37 Dose: 2 mg Linagliptin (Linagliptin 5 Mg Tab) 5 mg PO QDAY [facility] Last Admin: 12/07/21 09:24 Dose: 5 mg Metformin HCl (Metformin 500 Mg Tab) 1,000 mg PO QDDIAB [facility] Last Admin: 12/08/21 08:37 Dose: 1,000 mg Montelukast Sodium (Montelukast 10 Mg Tab) 10 mg PO QDAY [facility] Last Admin: 12/07/21 09:23 Dose: 10 mg Pantoprazole Sodium (Pantoprazole 40 Mg Tab) 40 mg PO QDAY [facility] Last Admin: 12/07/21 09:23 Dose: 40 mg Paroxetine HCl (Paroxetine 20 Mg Tab) 40 mg PO QAM [facility] Last Admin: 12/07/21 09:23 Dose: 40 mg Spironolactone (Spironolactone 25 Mg Tab) 25 mg PO QDAY [facility] Last Admin: 12/07/21 09:23 Dose: 25 mg Trazodone HCl (Trazodone 50 Mg Tab) 150 mg PO QHS [facility] Last Admin: 12/07/21 22:02 Dose: 150 mg Results - Results Labs/Vitals: Laboratory Last Values WBC 6.3 K/mm3 (4.5-11.0) 12/04/21 05:19 RBC 4.91 M/mm3 (3.65-5.03) 12/04/21 05:19 Hgb 13.1 gm/dl (11.8-15.2) 12/04/21 05:19 Hct 40.6 % (35.5-45.6) 12/04/21 05:19 MCV 83 fl (84-94) L 12/04/21 05:19 MCH 27 pg (28-32) L 12/04/21 05:19 MCHC 32 % (32-34) 12/04/21 05:19 RDW 16.2 % (13.2-15.2) H 12/04/21 05:19 Plt Count 298 K/mm3 (140-440) 12/04/21 05:19 Lymph % (Auto) 19.4 % (13.4-35.0) 12/04/21 05:19 [place] % (Auto) 10.1 % (0.0-7.3) H 12/04/21 05:19 Eos % (Auto) 2.4 % (0.0-4.3) 12/04/21 05:19 Baso % (Auto) 0.5 % (0.0-1.8) 12/04/21 05:19 Lymph # (Auto) 1.2 K/mm3 (1.2-5.4) 12/04/21 05:19 [place] # (Auto) 0.6 K/mm3 (0.0-0.8) 12/04/21 05:19 Eos # (Auto) 0.2 K/mm3 (0.0-0.4) 12/04/21 05:19 Baso # (Auto) 0.0 K/mm3 (0.0-0.1) 12/04/21 05:19 Seg Neutrophils % 67.6 % (40.0-70.0) 12/04/21 05:19 Seg Neutrophils # 4.2 K/mm3 (1.8-7.7) 12/04/21 05:19 Sodium 141 mmol/L (137-145) 12/04/21 05:19 Potassium 3.8 mmol/L (3.6-5.0) 12/04/21 05:19 Chloride 105.4 mmol/L (98-107) 12/04/21 05:19 Carbon Dioxide 24 mmol/L (22-30) 12/04/21 05:19 Anion Gap 15 mmol/L 12/04/21 05:19 BUN 23 mg/dL (9-20) H 12/04/21 05:19 Creatinine 1.2 mg/dL (0.8-1.3) 12/04/21 05:19 Estimated GFR 59 ml/min 12/04/21 05:19 BUN/Creatinine Ratio 19 % 12/04/21 05:19 Glucose 140 mg/dL (75-100) H 12/04/21 05:19 POC Glucose 103 mg/dL (70-105) 12/08/21 07:55 Hemoglobin A1c 5.7 % (4-6) 12/04/21 05:19 Calcium 9.4 mg/dL (8.4-10.2) 12/04/21 05:19 Total Bilirubin 0.40 mg/dL (0.1-1.2) 12/04/21 05:19 AST 15 units/L (5-40) 12/04/21 05:19 ALT 9 units/L (7-56) 12/04/21 05:19 Alkaline Phosphatase 48 units/L (35-129) 12/04/21 05:19 Total Protein 7.1 g/dL (6.3-8.2) 12/04/21 05:19 Albumin 4.0 g/dL (3.9-5) 12/04/21 05:19 Albumin/Globulin Ratio 1.3 % 12/04/21 05:19 Triglycerides 76 mg/dL (2-149) 12/04/21 05:19 Cholesterol 135 mg/dL (50-199) 12/04/21 05:19 LDL Cholesterol Direct 70 mg/dL (50-130) 12/04/21 05:19 HDL Cholesterol 48 mg/dL (40-59) 12/04/21 05:19 Cholesterol/HDL Ratio 2.81 % 12/04/21 05:19 TSH 1.110 mlU/mL (0.270-4.200) 12/04/21 05:19 Last Vital Signs Temp 97.4 F L 12/07/21 07:41 Pulse 100 H 12/07/21 07:41 Resp 16 12/07/21 07:41 BP 118/57 12/07/21 07:41 Pulse Ox 96 12/07/21 07:41
[2021-12-08] MEDS: FUROSEMIDE 40 MG TAB PO SCH (10:27)
[2021-12-08] MEDS: carvediloL 6.25 MG TAB PO SCH ×2 (10:28→21:24)
[2021-12-08] MEDS: MONTELUKAST 10 MG TAB PO SCH (10:28)
[2021-12-08] MEDS: SPIRONOLACTONE 25 MG TAB PO SCH (10:28)
[2021-12-08] MEDS: APIXABAN 5 MG TAB PO SCH ×2 (10:28→21:25)
[2021-12-08] MEDS: LINAGLIPTIN 5 MG TAB PO SCH (10:29)
[2021-12-08] MEDS: PANTOPRAZOLE 40 MG TAB PO SCH (10:29)
[2021-12-08] MEDS: AMOXICILLIN/K CLAV 875/125MG TAB PO SCH ×2 (10:29→21:23)
[2021-12-08] MEDS: FENOFIBRATE 145 MG TAB PO SCH (10:29)
[2021-12-08] MEDS: PARoxetine 20 MG TAB PO SCH (10:35)
[2021-12-08] MEDS: FAMOTIDINE 20 MG TAB PO SCH (10:35)
[2021-12-08] MEDS ORDERED: RABIES VACCINE, HUMAN DIPLOID/PF 2.5 UNIT/ML VIAL IM ONE (15:30)
[2021-12-08] MEDS: traZODone 50 MG TAB PO SCH (21:25)
[2021-12-09] MEDS: MONTELUKAST 10 MG TAB PO SCH (09:08)
[2021-12-09] MEDS: GLIMEPIRIDE 2 MG TAB PO SCH (09:09)
[2021-12-09] MEDS: PANTOPRAZOLE 40 MG TAB PO SCH (09:09)
[2021-12-09] MEDS: FAMOTIDINE 20 MG TAB PO SCH (09:09)
[2021-12-09] MEDS: FUROSEMIDE 40 MG TAB PO SCH (09:10)
[2021-12-09] MEDS: FENOFIBRATE 145 MG TAB PO SCH (09:10)
[2021-12-09] MEDS: LINAGLIPTIN 5 MG TAB PO SCH (09:11)
[2021-12-09] MEDS: metFORMIN 500 MG TAB PO SCH (09:15)
[2021-12-09] MEDS: APIXABAN 5 MG TAB PO SCH ×2 (09:15→21:19)
[2021-12-09] MEDS: AMOXICILLIN/K CLAV 875/125MG TAB PO SCH ×2 (09:15→21:17)
[2021-12-09] MEDS: PARoxetine 20 MG TAB PO SCH (09:16)
[2021-12-09] MEDS: carvediloL 6.25 MG TAB PO SCH ×2 (09:17→21:17)
[2021-12-09] MEDS: SPIRONOLACTONE 25 MG TAB PO SCH (09:19)
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
--- NOTE | 2021-12-09 15:08 | Consultation ---
History of Present Illness - Reason for Consult Consult date: 12/09/21 - History of Present Illness 76-year-old man past medical history hypertension, diabetes was brought to the hospital by police and altered mental status. He was confused but talkative on admission. Reportedly had a dog bite. Past History Past Medical History: other (See HPI) Past Surgical History: No surgical history Social history: denies: smoking Family history: hypertension Medications and Allergies Allergies Allergy/AdvReac Type Severity Reaction Status Date / Time No Known Allergies Allergy Unverified 12/03/21 16:09 Home Medications Medication Instructions Recorded Confirmed Last Taken Type Amoxicillin/K Clav Tab [Augmentin 1 tab PO Q12HR 12/04/21 12/04/21 12/03/21 History 875 mg] Apixaban [Eliquis] 5 mg PO BID 12/04/21 12/04/21 Unknown History Famotidine [Acid-Pep] 20 mg PO QDAY 12/04/21 12/04/21 Unknown History Fenofibrate,Micronized 134 mg PO QDAY 12/04/21 12/04/21 Unknown History [Fenofibrate] Furosemide [Lasix] 40 mg PO QDAY 12/04/21 12/04/21 Unknown History Glimepiride [Amaryl] 2 mg PO QDAY 12/04/21 12/04/21 Unknown History Montelukast [Singulair] 10 mg PO QDAY 12/04/21 12/04/21 Unknown History PARoxetine HCL [PARoxetine] 40 mg PO QAM 12/04/21 12/04/21 Unknown History Pantoprazole Sodium 40 mg PO QDAY 12/04/21 12/04/21 Unknown History Rosuvastatin Calcium [Crestor] 20 mg PO QDAY 12/04/21 12/04/21 Unknown History Sitagliptin Phosphate [Januvia] 100 mg PO QDAY 12/04/21 12/04/21 Unknown History Spironolactone [Aldactone] 25 mg PO QDAY 12/04/21 12/04/21 Unknown History carvediloL [Coreg] 6.25 mg PO BID 12/04/21 12/04/21 Unknown History metFORMIN [Glucophage] 1,000 mg PO QDAY 12/04/21 12/04/21 Unknown History traZODone [Desyrel] 150 mg PO QHS 12/04/21 12/04/21 Unknown History Active Meds: Active Medications Amoxicillin/Clavulanate Potassium (Amoxicillin/K Clav 875/125mg Tab) 1 each PO Q12HR [facility]; Protocol Stop: 12/10/21 23:59 Last Admin: 12/09/21 09:15 Dose: 1 each Apixaban (Apixaban 5 Mg Tab) 5 mg PO Q12HR [facility]; Protocol Last Admin: 12/09/21 09:15 Dose: 5 mg Atorvastatin Calcium (Atorvastatin 40 Mg Tab) 40 mg PO QHS [facility] Last Admin: 12/08/21 21:26 Dose: 40 mg Carvedilol (Carvedilol 6.25 Mg Tab) 6.25 mg PO BID [facility] Last Admin: 12/09/21 09:17 Dose: Not Given Famotidine (Famotidine 20 Mg Tab) 20 mg PO QDAY [facility] Last Admin: 12/09/21 09:09 Dose: 20 mg Fenofibrate (Fenofibrate 145 Mg Tab) 145 mg PO DAILY [facility] Last Admin: 12/09/21 09:10 Dose: 145 mg Furosemide (Furosemide 40 Mg Tab) 40 mg PO QDAY [facility] Last Admin: 12/09/21 09:10 Dose: 40 mg Glimepiride (Glimepiride 2 Mg Tab) 2 mg PO QDDIAB [facility] Last Admin: 12/09/21 09:09 Dose: 2 mg Linagliptin (Linagliptin 5 Mg Tab) 5 mg PO QDAY [facility] Last Admin: 12/09/21 09:11 Dose: 5 mg Metformin HCl (Metformin 500 Mg Tab) 1,000 mg PO QDDIAB [facility] Last Admin: 12/09/21 09:15 Dose: 1,000 mg Montelukast Sodium (Montelukast 10 Mg Tab) 10 mg PO QDAY [facility] Last Admin: 12/09/21 09:08 Dose: 10 mg Pantoprazole Sodium (Pantoprazole 40 Mg Tab) 40 mg PO QDAY [facility] Last Admin: 12/09/21 09:09 Dose: 40 mg Paroxetine HCl (Paroxetine 20 Mg Tab) 40 mg PO QAM [facility] Last Admin: 12/09/21 09:16 Dose: 40 mg Spironolactone (Spironolactone 25 Mg Tab) 25 mg PO QDAY [facility] Last Admin: 12/09/21 09:19 Dose: Not Given Trazodone HCl (Trazodone 50 Mg Tab) 150 mg PO QHS [facility] Last Admin: 12/08/21 21:25 Dose: 150 mg Review of Systems ROS unobtainable: due to mental status Physical Examination - Physical Exam Narrative exam: Physical Exam: Constitutional: Alert, cooperative. No acute distress Head, Ears, Nose: Normocephalic, atraumatic. External ears, nose normal Eyes: Conjunctivae/corneas clear. No icterus. No ptosis. Neck: Supple, no meningeal signs Oral: dentition fair, no thrush Cardiovascular: S1, S2 normal. Respiratory: Good air entry, clear to auscultation bilaterally GI: Soft, non-tender; bowel sounds normal. No peritoneal signs. Musculoskeletal: No pedal edema, no cyanosis. Skin: No rash or abscess Hem/Lymphatic: No palpable cervical or supraclavicular nodes. No lymphangitis Psych: Mood ok. Affect normal Neurological: Awake, alert, oriented. No gross abnormality - Constitutional Vitals: Vital Signs Temp Pulse Resp BP Pulse Ox 98.2 F 95 H 18 115/41 98 12/09/21 08:26 12/09/21 09:17 12/09/21 08:26 12/09/21 09:19 12/09/21 08:26 Temperature -Last 24 Hours Temperature 98.2 F Temperature 98.7 F Results - Labs CBC & Chem 7: 12/04/21 05:19 12/04/21 05:19 Assessment and Plan Cultures: None Assessment: 76 yo M admitted with psychiatric issues, now with: #Dog bite: continue Augmentin prophylaxis for now. Recommend 5 days. PLan: -5 days oral Augmentin 875/125mg q12h. Natalee Finnegan MD [facility] O: [phone] F: [phone]
[2021-12-09] MEDS: traZODone 50 MG TAB PO SCH (21:18)
[2021-12-10] MEDS: metFORMIN 500 MG TAB PO SCH (08:30)
[2021-12-10] MEDS: GLIMEPIRIDE 2 MG TAB PO SCH (08:30)
[2021-12-10] MEDS: PARoxetine 20 MG TAB PO SCH (09:16)
[2021-12-10] MEDS: MONTELUKAST 10 MG TAB PO SCH (09:16)
[2021-12-10] MEDS: LINAGLIPTIN 5 MG TAB PO SCH (09:17)
[2021-12-10] MEDS: FUROSEMIDE 40 MG TAB PO SCH (09:17)
[2021-12-10] MEDS: APIXABAN 5 MG TAB PO SCH ×2 (09:17→21:29)
[2021-12-10] MEDS: AMOXICILLIN/K CLAV 875/125MG TAB PO SCH ×2 (09:17→21:28)
[2021-12-10] MEDS: SPIRONOLACTONE 25 MG TAB PO SCH (09:17)
[2021-12-10] MEDS: PANTOPRAZOLE 40 MG TAB PO SCH (09:17)
[2021-12-10] MEDS: FENOFIBRATE 145 MG TAB PO SCH (09:17)
[2021-12-10] MEDS: FAMOTIDINE 20 MG TAB PO SCH (09:17)
[2021-12-10] MEDS: carvediloL 6.25 MG TAB PO SCH ×2 (09:18→21:28)
--- NOTE | 2021-12-10 10:42 | Progress Note ---
Subjective Date of service: 12/10/21 Principal diagnosis: MDD Subjective Comment: The patient was seen today. He is calm, cooperative and pleasant. He smiles when he sees me coming. He tells me he's ready to go home. He denies SI/HI or hallucinations of any kind. The patient says he's been sleeping well. He also says his appetite is good. 12/09/21: The patient seen at breakfast. He reports doing ok. The patient repo rts sleep and appetite as good. He denies any current suicidal homicidal ideation and denies hallucinations. per nurse , " Last evening the patient walked around the unit smiling. He was pleasant and cooperative but confused. He denies si/hi/ah/vh. His appetite is good and he was medication compliant. Overnight he turned the shower on and flooded his floor. He had a bowel movement in the bathroom floor. He slept after flooding his room for a total of 7 hours." 12/08/21: The patient was seen in his room. He states he is doing well. The patient reports sleep and appetite as good. He denies any current suicidal homicidal ideation and denies hallucinations. 12/07/21: The patient was seen this morning. He is isolative. He states he is doing well. The patient reports sleep and appetite as good. He denies any current suicidal homicidal ideation and denies hallucinations. 12/06/21:The patient was seen this morning resting in bed. He states he is doing alright. The patient states he slept all night. He states depression as " alright." unable to rate. He denies any current suicidal homicidal ideation and denies hallucinations. REVIEW OF SYSTEMS Unable to assess MENTAL STATUS EXAMINATION Unable to assess Assessment and Plan (1) MDD Current Visit: Yes Status: Acute Treatment Plan Patient admitted for inpatient psychiatric evaluation, medication adjustment and close monitoring The patient's behavior, mood, sleep and appetite will be closely monitored. Patient enrolled in individual and group therapeutic sessions and encouraged to attend. Patient provided with a safe and structured environment. Patient's physical health needs will be addressed by the Hospitalist. Hospitalist Consulted Labs including CBC, CMP, Lipid profile and Hemoglobin A1C levels ordered for baseline reference Social Assessment will be completed and the Regional Sales Executive will work with patient and family to ensure a suitable and safe disposition Medication adjustment will be made as clinically indicated Continued home meds Usual Wellness Hindu/Preservation: - Start Trazodone 50 mg po QHS & 50 mg po QHS PRN between 10 PM & 2 AM for insomnia - Start Melatonin 5 mg po QHS to promote circadian rhythm The patient agreed on the treatment plan, understood the risk, benefit, alternative treatment, potential consequence of no treatment, and gave informed consent. Estimated days: Post hospital care: primary care provider, psychiatric provider Case staffed with Dr. Dejesus Medications and Allergies Allergies Allergy/AdvReac Type Severity Reaction Status Date / Time No Known Allergies Allergy Unverified 12/03/21 16:09 Home Medications Medication Instructions Recorded Confirmed Last Taken Type Amoxicillin/K Clav Tab [Augmentin 1 tab PO Q12HR 12/04/21 12/04/21 12/03/21 History 875 mg] Apixaban [Eliquis] 5 mg PO BID 12/04/21 12/04/21 Unknown History Famotidine [Acid-Pep] 20 mg PO QDAY 12/04/21 12/04/21 Unknown History Fenofibrate,Micronized 134 mg PO QDAY 12/04/21 12/04/21 Unknown History [Fenofibrate] Furosemide [Lasix] 40 mg PO QDAY 12/04/21 12/04/21 Unknown History Glimepiride [Amaryl] 2 mg PO QDAY 12/04/21 12/04/21 Unknown History Montelukast [Singulair] 10 mg PO QDAY 12/04/21 12/04/21 Unknown History PARoxetine HCL [PARoxetine] 40 mg PO QAM 12/04/21 12/04/21 Unknown History Pantoprazole Sodium 40 mg PO QDAY 12/04/21 12/04/21 Unknown History Rosuvastatin Calcium [Crestor] 20 mg PO QDAY 12/04/21 12/04/21 Unknown History Sitagliptin Phosphate [Januvia] 100 mg PO QDAY 12/04/21 12/04/21 Unknown History Spironolactone [Aldactone] 25 mg PO QDAY 12/04/21 12/04/21 Unknown History carvediloL [Coreg] 6.25 mg PO BID 12/04/21 12/04/21 Unknown History metFORMIN [Glucophage] 1,000 mg PO QDAY 12/04/21 12/04/21 Unknown History traZODone [Desyrel] 150 mg PO QHS 12/04/21 12/04/21 Unknown History Active Meds: Active Medications Amoxicillin/Clavulanate Potassium (Amoxicillin/K Clav 875/125mg Tab) 1 each PO Q12HR [facility]; Protocol Stop: 12/10/21 23:59 Last Admin: 12/10/21 09:17 Dose: 1 each Apixaban (Apixaban 5 Mg Tab) 5 mg PO Q12HR [facility]; Protocol Last Admin: 12/10/21 09:17 Dose: 5 mg Atorvastatin Calcium (Atorvastatin 40 Mg Tab) 40 mg PO QHS [facility] Last Admin: 12/09/21 21:19 Dose: 40 mg Carvedilol (Carvedilol 6.25 Mg Tab) 6.25 mg PO BID [facility] Last Admin: 12/10/21 09:18 Dose: Not Given Famotidine (Famotidine 20 Mg Tab) 20 mg PO QDAY [facility] Last Admin: 12/10/21 09:17 Dose: 20 mg Fenofibrate (Fenofibrate 145 Mg Tab) 145 mg PO DAILY [facility] Last Admin: 12/10/21 09:17 Dose: 145 mg Furosemide (Furosemide 40 Mg Tab) 40 mg PO QDAY [facility] Last Admin: 12/10/21 09:17 Dose: 40 mg Glimepiride (Glimepiride 2 Mg Tab) 2 mg PO QDDIAB [facility] Last Admin: 12/10/21 08:30 Dose: 2 mg Linagliptin (Linagliptin 5 Mg Tab) 5 mg PO QDAY [facility] Last Admin: 12/10/21 09:17 Dose: 5 mg Metformin HCl (Metformin 500 Mg Tab) 1,000 mg PO QDDIAB [facility] Last Admin: 12/10/21 08:30 Dose: 1,000 mg Montelukast Sodium (Montelukast 10 Mg Tab) 10 mg PO QDAY [facility] Last Admin: 12/10/21 09:16 Dose: 10 mg Pantoprazole Sodium (Pantoprazole 40 Mg Tab) 40 mg PO QDAY [facility] Last Admin: 12/10/21 09:17 Dose: 40 mg Paroxetine HCl (Paroxetine 20 Mg Tab) 40 mg PO QAM [facility] Last Admin: 12/10/21 09:16 Dose: 40 mg Spironolactone (Spironolactone 25 Mg Tab) 25 mg PO QDAY [facility] Last Admin: 12/10/21 09:17 Dose: Not Given Trazodone HCl (Trazodone 50 Mg Tab) 150 mg PO QHS [facility] Last Admin: 12/09/21 21:18 Dose: 150 mg Results - Results Labs/Vitals: Laboratory Last Values WBC 6.3 K/mm3 (4.5-11.0) 12/04/21 05:19 RBC 4.91 M/mm3 (3.65-5.03) 12/04/21 05:19 Hgb 13.1 gm/dl (11.8-15.2) 12/04/21 05:19 Hct 40.6 % (35.5-45.6) 12/04/21 05:19 MCV 83 fl (84-94) L 12/04/21 05:19 MCH 27 pg (28-32) L 12/04/21 05:19 MCHC 32 % (32-34) 12/04/21 05:19 RDW 16.2 % (13.2-15.2) H 12/04/21 05:19 Plt Count 298 K/mm3 (140-440) 12/04/21 05:19 Lymph % (Auto) 19.4 % (13.4-35.0) 12/04/21 05:19 [place] % (Auto) 10.1 % (0.0-7.3) H 12/04/21 05:19 Eos % (Auto) 2.4 % (0.0-4.3) 12/04/21 05:19 Baso % (Auto) 0.5 % (0.0-1.8) 12/04/21 05:19 Lymph # (Auto) 1.2 K/mm3 (1.2-5.4) 12/04/21 05:19 [place] # (Auto) 0.6 K/mm3 (0.0-0.8) 12/04/21 05:19 Eos # (Auto) 0.2 K/mm3 (0.0-0.4) 12/04/21 05:19 Baso # (Auto) 0.0 K/mm3 (0.0-0.1) 12/04/21 05:19 Seg Neutrophils % 67.6 % (40.0-70.0) 12/04/21 05:19 Seg Neutrophils # 4.2 K/mm3 (1.8-7.7) 12/04/21 05:19 Sodium 141 mmol/L (137-145) 12/04/21 05:19 Potassium 3.8 mmol/L (3.6-5.0) 12/04/21 05:19 Chloride 105.4 mmol/L (98-107) 12/04/21 05:19 Carbon Dioxide 24 mmol/L (22-30) 12/04/21 05:19 Anion Gap 15 mmol/L 12/04/21 05:19 BUN 23 mg/dL (9-20) H 12/04/21 05:19 Creatinine 1.2 mg/dL (0.8-1.3) 12/04/21 05:19 Estimated GFR 59 ml/min 12/04/21 05:19 BUN/Creatinine Ratio 19 % 12/04/21 05:19 Glucose 140 mg/dL (75-100) H 12/04/21 05:19 POC Glucose 119 mg/dL (70-105) H 12/10/21 06:35 Hemoglobin A1c 5.7 % (4-6) 12/04/21 05:19 Calcium 9.4 mg/dL (8.4-10.2) 12/04/21 05:19 Total Bilirubin 0.40 mg/dL (0.1-1.2) 12/04/21 05:19 AST 15 units/L (5-40) 12/04/21 05:19 ALT 9 units/L (7-56) 12/04/21 05:19 Alkaline Phosphatase 48 units/L (35-129) 12/04/21 05:19 Total Protein 7.1 g/dL (6.3-8.2) 12/04/21 05:19 Albumin 4.0 g/dL (3.9-5) 12/04/21 05:19 Albumin/Globulin Ratio 1.3 % 12/04/21 05:19 Triglycerides 76 mg/dL (2-149) 12/04/21 05:19 Cholesterol 135 mg/dL (50-199) 12/04/21 05:19 LDL Cholesterol Direct 70 mg/dL (50-130) 12/04/21 05:19 HDL Cholesterol 48 mg/dL (40-59) 12/04/21 05:19 Cholesterol/HDL Ratio 2.81 % 12/04/21 05:19 TSH 1.110 mlU/mL (0.270-4.200) 12/04/21 05:19 Last Vital Signs Temp 98.6 F 12/10/21 08:57 Pulse 96 H 12/10/21 08:57 Resp 18 12/10/21 08:57 BP 103/56 12/10/21 09:18 Pulse Ox 96 12/10/21 08:57
--- NOTE | 2021-12-10 14:14 | Progress Note ---
Assessment and Plan Cultures: None Assessment: 76 yo M admitted with psychiatric issues, now with: #Dog bite: continue Augmentin prophylaxis for now. Recommend 5 days. PLan: -5 days oral Augmentin 875/125mg q12h. Infectious disease will sign off. Please call questions. Natalee Finnegan MD [facility] ([facility]) O: [phone] F: [phone] Subjective Date of service: 12/10/21 Principal diagnosis: MDD Interval history: Afebrile, no acute change. Objective - Exam Narrative Exam: Physical Exam: Constitutional: Alert, cooperative. No acute distress Head, Ears, Nose: Normocephalic, atraumatic. External ears, nose normal Eyes: Conjunctivae/corneas clear. No icterus. No ptosis. Neck: Supple, no meningeal signs Oral: dentition fair, no thrush Cardiovascular: S1, S2 normal. Respiratory: Good air entry, clear to auscultation bilaterally GI: Soft, non-tender; bowel sounds normal. No peritoneal signs. Musculoskeletal: No pedal edema, no cyanosis. Skin: No rash or abscess Hem/Lymphatic: No palpable cervical or supraclavicular nodes. No lymphangitis Psych: Mood ok. Affect normal Neurological: Awake, alert, oriented. No gross abnormality - Constitutional Vitals: Vital Signs Temp Pulse Resp BP Pulse Ox 98.6 F 96 H 18 103/56 96 12/10/21 08:57 12/10/21 08:57 12/10/21 08:57 12/10/21 09:18 12/10/21 08:57 Temperature -Last 24 Hours Temperature 98.6 F Temperature 97.4 F - Labs CBC & Chem 7: 12/04/21 05:19 12/04/21 05:19 Labs: Abnormal lab results 12/10/21 Range/Units 06:35 POC Glucose 119 H (70-105) mg/dL
[2021-12-10] MEDS: traZODone 50 MG TAB PO SCH (21:28)
[2021-12-11 07:47] LABS: Hematocrit 38.2 % (35.5-45.6); Hemoglobin 12.2 gm/dl (11.8-15.2); Mean Corpuscular HGB Conc 32 % (32-34); Mean Corpuscular Volume 83 fl (84-94); Platelet Count 243 K/mm3 (140-440); Red Blood Count 4.59 M/mm3 (3.65-5.03); Red Cell Distribution Width 16.4 % (13.2-15.2)
[2021-12-11] MEDS: GLIMEPIRIDE 2 MG TAB PO SCH (08:53)
[2021-12-11] MEDS: metFORMIN 500 MG TAB PO SCH (08:55)
--- NOTE | 2021-12-11 08:59 | Progress Note ---
Subjective Date of service: 12/11/21 Principal diagnosis: MDD Subjective Comment: The patient was seen today. He is pleasant, calm, and cooperative. He says he slept well. He denies SI/HI or hallucinations of any kind. 12/10 The patient was seen today. He is calm, cooperative and pleasant. He smiles when he sees me coming. He tells me he's ready to go home. He denies SI/HI or hallucinations of any kind. The patient says he's been sleeping well. He also says his appetite is good. 12/09/21: The patient seen at breakfast. He reports doing ok. The patient reports sleep and appetite as good. He denies any current suicidal homicidal ideation and denies hallucinations. per nurse , " Last evening the patient walked around the unit smiling. He was pleasant and cooperative but confused. He denies si/hi/ah/vh. His appetite is good and he was medication compliant. Overnight he turned the shower on and flooded his floor. He had a bowel movement in the bathroom floor. He slept after flooding his room for a total of 7 hours." 12/08/21: The patient was seen in his room. He states he is doing well. The patient reports sleep and appetite as good. He denies any current suicidal homicidal ideation and denies hallucinations. 12/07/21: The patient was seen this morning. He is isolative. He states he is doing well. The patient reports sleep and appetite as good. He denies any current suicidal homicidal ideation and denies hallucinations. 12/06/21:The patient was seen this morning resting in bed. He states he is doing alright. The patient states he slept all night. He states depression as " alright." unable to rate. He denies any current suicidal homicidal ideation and denies hallucinations. REVIEW OF SYSTEMS Unable to assess MENTAL STATUS EXAMINATION Unable to assess Assessment and Plan (1) MDD Current Visit: Yes Status: Acute Treatment Plan Patient admitted for inpatient psychiatric evaluation, medication adjustment and close monitoring The patient's behavior, mood, sleep and appetite will be closely monitored. Patient enrolled in individual and group therapeutic sessions and encouraged to attend. Patient provided with a safe and structured environment. Patient's physical health needs will be addressed by the Hospitalist. Hospitalist Consulted Labs including CBC, CMP, Lipid profile and Hemoglobin A1C levels ordered for baseline reference Social Assessment will be completed and the Commercial Pilot will work with patient and family to ensure a suitable and safe disposition Medication adjustment will be made as clinically indicated Continued home meds Usual Wellness Zoroastrianism/Preservation: - Start Trazodone 50 mg po QHS & 50 mg po QHS PRN between 10 PM & 2 AM for insomnia - Start Melatonin 5 mg po QHS to promote circadian rhythm The patient agreed on the treatment plan, understood the risk, benefit, alternative treatment, potential consequence of no treatment, and gave informed consent. Estimated days: Post hospital care: primary care provider, psychiatric provider Case staffed with Dr. Dejesus Medications and Allergies Allergies Allergy/AdvReac Type Severity Reaction Status Date / Time No Known Allergies Allergy Unverified 12/03/21 16:09 Home Medications Medication Instructions Recorded Confirmed Last Taken Type Amoxicillin/K Clav Tab [Augmentin 1 tab PO Q12HR 12/04/21 12/04/21 12/03/21 History 875 mg] Apixaban [Eliquis] 5 mg PO BID 12/04/21 12/04/21 Unknown History Famotidine [Acid-Pep] 20 mg PO QDAY 12/04/21 12/04/21 Unknown History Fenofibrate,Micronized 134 mg PO QDAY 12/04/21 12/04/21 Unknown History [Fenofibrate] Furosemide [Lasix] 40 mg PO QDAY 12/04/21 12/04/21 Unknown History Glimepiride [Amaryl] 2 mg PO QDAY 12/04/21 12/04/21 Unknown History Montelukast [Singulair] 10 mg PO QDAY 12/04/21 12/04/21 Unknown History PARoxetine HCL [PARoxetine] 40 mg PO QAM 12/04/21 12/04/21 Unknown History Pantoprazole Sodium 40 mg PO QDAY 12/04/21 12/04/21 Unknown History Rosuvastatin Calcium [Crestor] 20 mg PO QDAY 12/04/21 12/04/21 Unknown History Sitagliptin Phosphate [Januvia] 100 mg PO QDAY 12/04/21 12/04/21 Unknown History Spironolactone [Aldactone] 25 mg PO QDAY 12/04/21 12/04/21 Unknown History carvediloL [Coreg] 6.25 mg PO BID 12/04/21 12/04/21 Unknown History metFORMIN [Glucophage] 1,000 mg PO QDAY 12/04/21 12/04/21 Unknown History traZODone [Desyrel] 150 mg PO QHS 12/04/21 12/04/21 Unknown History Active Meds: Active Medications Apixaban (Apixaban 5 Mg Tab) 5 mg PO Q12HR [facility]; Protocol Last Admin: 12/10/21 21:29 Dose: 5 mg Atorvastatin Calcium (Atorvastatin 40 Mg Tab) 40 mg PO QHS [facility] Last Admin: 12/10/21 21:29 Dose: 40 mg Carvedilol (Carvedilol 6.25 Mg Tab) 6.25 mg PO BID [facility] Last Admin: 12/10/21 21:28 Dose: 6.25 mg Famotidine (Famotidine 20 Mg Tab) 20 mg PO QDAY [facility] Last Admin: 12/10/21 09:17 Dose: 20 mg Fenofibrate (Fenofibrate 145 Mg Tab) 145 mg PO DAILY [facility] Last Admin: 12/10/21 09:17 Dose: 145 mg Furosemide (Furosemide 40 Mg Tab) 40 mg PO QDAY [facility] Last Admin: 12/10/21 09:17 Dose: 40 mg Glimepiride (Glimepiride 2 Mg Tab) 2 mg PO QDDIAB [facility] Last Admin: 12/11/21 08:53 Dose: 2 mg Linagliptin (Linagliptin 5 Mg Tab) 5 mg PO QDAY [facility] Last Admin: 12/10/21 09:17 Dose: 5 mg Metformin HCl (Metformin 500 Mg Tab) 1,000 mg PO QDDIAB [facility] Last Admin: 12/11/21 08:55 Dose: 1,000 mg Montelukast Sodium (Montelukast 10 Mg Tab) 10 mg PO QDAY [facility] Last Admin: 12/10/21 09:16 Dose: 10 mg Pantoprazole Sodium (Pantoprazole 40 Mg Tab) 40 mg PO QDAY [facility] Last Admin: 12/10/21 09:17 Dose: 40 mg Paroxetine HCl (Paroxetine 20 Mg Tab) 40 mg PO QAM [facility] Last Admin: 12/10/21 09:16 Dose: 40 mg Spironolactone (Spironolactone 25 Mg Tab) 25 mg PO QDAY [facility] Last Admin: 12/10/21 09:17 Dose: Not Given Trazodone HCl (Trazodone 50 Mg Tab) 150 mg PO QHS [facility] Last Admin: 12/10/21 21:28 Dose: 150 mg Results - Results Labs/Vitals: Laboratory Last Values WBC 5.1 K/mm3 (4.5-11.0) 12/11/21 07:22 RBC 4.59 M/mm3 (3.65-5.03) 12/11/21 07:22 Hgb 12.2 gm/dl (11.8-15.2) 12/11/21 07:22 Hct 38.2 % (35.5-45.6) 12/11/21 07:22 MCV 83 fl (84-94) L 12/11/21 07: MCH 27 pg (28-32) L 12/11/21 07: MCHC 32 % (32-34) 12/11/21 07: RDW 16.4 % (13.2-15.2) H 12/11/21 07:22 Plt Count 243 K/mm3 (140-440) 12/11/21 07:22 Lymph % (Auto) 19.4 % (13.4-35.0) 12/04/21 05:19 [place] % (Auto) 10.1 % (0.0-7.3) H 12/04/21 05:19 Eos % (Auto) 2.4 % (0.0-4.3) 12/04/21 05:19 Baso % (Auto) 0.5 % (0.0-1.8) 12/04/21 05:19 Lymph # (Auto) 1.2 K/mm3 (1.2-5.4) 12/04/21 05:19 [place] # (Auto) 0.6 K/mm3 (0.0-0.8) 12/04/21 05:19 Eos # (Auto) 0.2 K/mm3 (0.0-0.4) 12/04/21 05:19 Baso # (Auto) 0.0 K/mm3 (0.0-0.1) 12/04/21 05:19 Seg Neutrophils % 67.6 % (40.0-70.0) 12/04/21 05:19 Seg Neutrophils # 4.2 K/mm3 (1.8-7.7) 12/04/21 05:19 Sodium 141 mmol/L (137-145) 12/04/21 05:19 Potassium 3.8 mmol/L (3.6-5.0) 12/04/21 05:19 Chloride 105.4 mmol/L (98-107) 12/04/21 05:19 Carbon Dioxide 24 mmol/L (22-30) 12/04/21 05:19 Anion Gap 15 mmol/L 12/04/21 05:19 BUN 23 mg/dL (9-20) H 12/04/21 05:19 Creatinine 1.1 mg/dL (0.8-1.3) 12/11/21 07:22 Estimated GFR > 60 ml/min 12/11/21 07:22 BUN/Creatinine Ratio 19 % 12/04/21 05:19 Glucose 140 mg/dL (75-100) H 12/04/21 05:19 POC Glucose 82 mg/dL (70-105) 12/11/21 07:53 Hemoglobin A1c 5.7 % (4-6) 12/04/21 05:19 Calcium 9.4 mg/dL (8.4-10.2) 12/04/21 05:19 Total Bilirubin 0.40 mg/dL (0.1-1.2) 12/04/21 05:19 AST 15 units/L (5-40) 12/04/21 05:19 ALT 9 units/L (7-56) 12/04/21 05:19 Alkaline Phosphatase 48 units/L (35-129) 12/04/21 05:19 Total Protein 7.1 g/dL (6.3-8.2) 12/04/21 05:19 Albumin 4.0 g/dL (3.9-5) 12/04/21 05:19 Albumin/Globulin Ratio 1.3 % 12/04/21 05:19 Triglycerides 76 mg/dL (2-149) 12/04/21 05:19 Cholesterol 135 mg/dL (50-199) 12/04/21 05:19 LDL Cholesterol Direct 70 mg/dL (50-130) 12/04/21 05:19 HDL Cholesterol 48 mg/dL (40-59) 12/04/21 05:19 Cholesterol/HDL Ratio 2.81 % 12/04/21 05:19 TSH 1.110 mlU/mL (0.270-4.200) 12/04/21 05:19 Last Vital Signs Temp 97.7 F 12/10/21 19:03 Pulse 95 H 12/10/21 21:28 Resp 18 12/10/21 19:03 BP 137/76 12/10/21 21:28 Pulse Ox 97 12/10/21 19:03
[2021-12-11] MEDS: FAMOTIDINE 20 MG TAB PO SCH (09:52)
[2021-12-11] MEDS: PANTOPRAZOLE 40 MG TAB PO SCH (09:52)
[2021-12-11] MEDS: FUROSEMIDE 40 MG TAB PO SCH (09:53)
[2021-12-11] MEDS: PARoxetine 20 MG TAB PO SCH (09:53)
[2021-12-11] MEDS: carvediloL 6.25 MG TAB PO SCH ×2 (09:54→21:58)
[2021-12-11] MEDS: FENOFIBRATE 145 MG TAB PO SCH (09:55)
[2021-12-11] MEDS: LINAGLIPTIN 5 MG TAB PO SCH (09:55)
[2021-12-11] MEDS: MONTELUKAST 10 MG TAB PO SCH (09:55)
[2021-12-11] MEDS: SPIRONOLACTONE 25 MG TAB PO SCH (09:55)
[2021-12-11] MEDS: APIXABAN 5 MG TAB PO SCH ×2 (09:56→21:58)
[2021-12-11] MEDS: traZODone 50 MG TAB PO SCH (21:57)
[2021-12-12] MEDS: FUROSEMIDE 40 MG TAB PO SCH (09:11)
[2021-12-12] MEDS: metFORMIN 500 MG TAB PO SCH (09:11)
[2021-12-12] MEDS: FENOFIBRATE 145 MG TAB PO SCH (09:11)
[2021-12-12] MEDS: PANTOPRAZOLE 40 MG TAB PO SCH (09:12)
[2021-12-12] MEDS: FAMOTIDINE 20 MG TAB PO SCH (09:12)
[2021-12-12] MEDS: GLIMEPIRIDE 2 MG TAB PO SCH (09:13)
[2021-12-12] MEDS: MONTELUKAST 10 MG TAB PO SCH (09:13)
[2021-12-12] MEDS: carvediloL 6.25 MG TAB PO SCH ×2 (09:13→21:13)
[2021-12-12] MEDS: PARoxetine 20 MG TAB PO SCH (09:14)
[2021-12-12] MEDS: APIXABAN 5 MG TAB PO SCH ×2 (09:14→21:48)
[2021-12-12] MEDS: LINAGLIPTIN 5 MG TAB PO SCH (09:14)
[2021-12-12] MEDS: SPIRONOLACTONE 25 MG TAB PO SCH (09:15)
--- NOTE | 2021-12-12 10:16 | Progress Note ---
Subjective Date of service: 12/12/21 Principal diagnosis: MDD Subjective Comment: The patient was seen today. He is just getting out of the shower. He says he slept well and is ready to go home. He denies SI/HI or hallucinations of any kind. 12/11 The patient was seen today. He is pleasant, calm, and cooperative. He says he slept well. He denies SI/HI or hallucinations of any kind. 12/10 The patient was seen today. He is calm, cooperative and pleasant. He smiles when he sees me coming. He tells me he's ready to go home. He denies SI/HI or hallucinations of any kind. The patient says he's been sleeping well. He also says his appetite is good. 12/09/21: The patient seen at breakfast. He reports doing ok. The patient reports sleep and appetite as good. He denies any current suicidal homicidal ideation and denies hallucinations. per nurse , " Last evening the patient walked around the unit smiling. He was pleasant and cooperative but confused. He denies si/hi/ah/vh. His appetite is good and he was medication compliant. Overnight he turned the shower on and flooded his floor. He had a bowel movement in the bathroom floor. He slept after flooding his room for a total of 7 hours." 12/08/21: The patient was seen in his room. He states he is doing well. The patient reports sleep and appetite as good. He denies any current suicidal homicidal ideation and denies hallucinations. 12/07/21: The patient was seen this morning. He is isolative. He states he is doing well. The patient reports sleep and appetite as good. He denies any current suicidal homicidal ideation and denies hallucinations. 12/06/21:The patient was seen this morning resting in bed. He states he is doing alright. The patient states he slept all night. He states depression as " alright." unable to rate. He denies any current suicidal homicidal ideation and denies hallucinations. REVIEW OF SYSTEMS Unable to assess MENTAL STATUS EXAMINATION Unable to assess Assessment and Plan (1) MDD Current Visit: Yes Status: Acute Treatment Plan Patient admitted for inpatient psychiatric evaluation, medication adjustment and close monitoring The patient's behavior, mood, sleep and appetite will be closely monitored. Patient enrolled in individual and group therapeutic sessions and encouraged to attend. Patient provided with a safe and structured environment. Patient's physical health needs will be addressed by the Hospitalist. Hospitalist Consulted Labs including CBC, CMP, Lipid profile and Hemoglobin A1C levels ordered for baseline reference Social Assessment will be completed and the Trim Attacher will work with patient and family to ensure a suitable and safe disposition Medication adjustment will be made as clinically indicated Continued home meds Usual Wellness Sikhism/Preservation: - Start Trazodone 50 mg po QHS & 50 mg po QHS PRN between 10 PM & 2 AM for insomnia - Start Melatonin 5 mg po QHS to promote circadian rhythm The patient agreed on the treatment plan, understood the risk, benefit, alternative treatment, potential consequence of no treatment, and gave informed consent. Estimated days: Post hospital care: primary care provider, psychiatric provider Case staffed with Dr. Dejesus Medications and Allergies Allergies Allergy/AdvReac Type Severity Reaction Status Date / Time No Known Allergies Allergy Unverified 12/03/21 16:09 Home Medications Medication Instructions Recorded Confirmed Last Taken Type Amoxicillin/K Clav Tab [Augmentin 1 tab PO Q12HR 12/04/21 12/04/21 12/03/21 History 875 mg] Apixaban [Eliquis] 5 mg PO BID 12/04/21 12/04/21 Unknown History Famotidine [Acid-Pep] 20 mg PO QDAY 12/04/21 12/04/21 Unknown History Fenofibrate,Micronized 134 mg PO QDAY 12/04/21 12/04/21 Unknown History [Fenofibrate] Furosemide [Lasix] 40 mg PO QDAY 12/04/21 12/04/21 Unknown History Glimepiride [Amaryl] 2 mg PO QDAY 12/04/21 12/04/21 Unknown History Montelukast [Singulair] 10 mg PO QDAY 12/04/21 12/04/21 Unknown History PARoxetine HCL [PARoxetine] 40 mg PO QAM 12/04/21 12/04/21 Unknown History Pantoprazole Sodium 40 mg PO QDAY 12/04/21 12/04/21 Unknown History Rosuvastatin Calcium [Crestor] 20 mg PO QDAY 12/04/21 12/04/21 Unknown History Sitagliptin Phosphate [Januvia] 100 mg PO QDAY 12/04/21 12/04/21 Unknown History Spironolactone [Aldactone] 25 mg PO QDAY 12/04/21 12/04/21 Unknown History carvediloL [Coreg] 6.25 mg PO BID 12/04/21 12/04/21 Unknown History metFORMIN [Glucophage] 1,000 mg PO QDAY 12/04/21 12/04/21 Unknown History traZODone [Desyrel] 150 mg PO QHS 12/04/21 12/04/21 Unknown History Active Meds: Active Medications Apixaban (Apixaban 5 Mg Tab) 5 mg PO Q12HR [facility]; Protocol Last Admin: 12/12/21 09:14 Dose: 5 mg Atorvastatin Calcium (Atorvastatin 40 Mg Tab) 40 mg PO QHS [facility] Last Admin: 12/11/21 21:58 Dose: 40 mg Carvedilol (Carvedilol 6.25 Mg Tab) 6.25 mg PO BID [facility] Last Admin: 12/12/21 09:13 Dose: 6.25 mg Famotidine (Famotidine 20 Mg Tab) 20 mg PO QDAY [facility] Last Admin: 12/12/21 09:12 Dose: 20 mg Fenofibrate (Fenofibrate 145 Mg Tab) 145 mg PO DAILY [facility] Last Admin: 12/12/21 09:11 Dose: 145 mg Furosemide (Furosemide 40 Mg Tab) 40 mg PO QDAY [facility] Last Admin: 12/12/21 09:11 Dose: 40 mg Glimepiride (Glimepiride 2 Mg Tab) 2 mg PO QDDIAB [facility] Last Admin: 12/12/21 09:13 Dose: 2 mg Linagliptin (Linagliptin 5 Mg Tab) 5 mg PO QDAY [facility] Last Admin: 12/12/21 09:14 Dose: 5 mg Metformin HCl (Metformin 500 Mg Tab) 1,000 mg PO QDDIAB [facility] Last Admin: 12/12/21 09:11 Dose: 1,000 mg Montelukast Sodium (Montelukast 10 Mg Tab) 10 mg PO QDAY [facility] Last Admin: 12/11/21 09:55 Dose: 10 mg Pantoprazole Sodium (Pantoprazole 40 Mg Tab) 40 mg PO QDAY [facility] Last Admin: 12/12/21 09:12 Dose: 40 mg Paroxetine HCl ([facility] 20 Mg Tab) [facility] [place] [facility] Admin: 12/12/21 09:14 Dose: 40 mg Spironolactone (Spironolactone 25 Mg Tab) 25 mg PO QDAY [facility] Last Admin: 12/11/21 09:55 Dose: 25 mg Trazodone HCl (Trazodone 50 Mg Tab) 150 mg PO QHS [facility] Last Admin: 12/11/21 21:57 Dose: 150 mg Results - Results Labs/Vitals: Laboratory Last Values WBC 5.1 K/mm3 (4.5-11.0) 12/11/21 07:22 RBC 4.59 M/mm3 (3.65-5.03) 12/11/21 07:22 Hgb 12.2 gm/dl (11.8-15.2) 12/11/21 07:22 Hct 38.2 % (35.5-45.6) 12/11/21 07:22 MCV 83 fl (84-94) L 12/11/21 07:22 MCH 27 pg (28-32) L 12/11/21 07: MCHC 32 % (32-34) 12/11/21 07:22 RDW 16.4 % (13.2-15.2) H 12/11/21 07:22 Plt Count 243 K/mm3 (140-440) 12/11/21 07:22 Lymph % (Auto) 19.4 % (13.4-35.0) 12/04/21 05:19 [place] % (Auto) 10.1 % (0.0-7.3) H 12/04/21 05:19 Eos % (Auto) 2.4 % (0.0-4.3) 12/04/21 05:19 Baso % (Auto) 0.5 % (0.0-1.8) 12/04/21 05:19 Lymph # (Auto) 1.2 K/mm3 (1.2-5.4) 12/04/21 05:19 [place] # (Auto) 0.6 K/mm3 (0.0-0.8) 12/04/21 05:19 Eos # (Auto) 0.2 K/mm3 (0.0-0.4) 12/04/21 05:19 Baso # (Auto) 0.0 K/mm3 (0.0-0.1) 12/04/21 05:19 Seg Neutrophils % 67.6 % (40.0-70.0) 12/04/21 05:19 Seg Neutrophils # 4.2 K/mm3 (1.8-7.7) 12/04/21 05:19 Sodium 141 mmol/L (137-145) 12/04/21 05:19 Potassium 3.8 mmol/L (3.6-5.0) 12/04/21 05:19 Chloride 105.4 mmol/L (98-107) 12/04/21 05:19 Carbon Dioxide 24 mmol/L (22-30) 12/04/21 05:19 Anion Gap 15 mmol/L 12/04/21 05:19 BUN 23 mg/dL (9-20) H 12/04/21 05:19 Creatinine 1.1 mg/dL (0.8-1.3) 12/11/21 07:22 Estimated GFR > 60 ml/min 12/11/21 07:22 BUN/Creatinine Ratio 19 % 12/04/21 05:19 Glucose 140 mg/dL (75-100) H 12/04/21 05:19 POC Glucose 98 mg/dL (70-105) 12/12/21 06:47 Hemoglobin A1c 5.7 % (4-6) 12/04/21 05:19 Calcium 9.4 mg/dL (8.4-10.2) 12/04/21 05:19 Total Bilirubin 0.40 mg/dL (0.1-1.2) 12/04/21 05:19 AST 15 units/L (5-40) 12/04/21 05:19 ALT 9 units/L (7-56) 12/04/21 05:19 Alkaline Phosphatase 48 units/L (35-129) 12/04/21 05:19 Total Protein 7.1 g/dL (6.3-8.2) 12/04/21 05:19 Albumin 4.0 g/dL (3.9-5) 12/04/21 05:19 Albumin/Globulin Ratio 1.3 % 12/04/21 05:19 Triglycerides 76 mg/dL (2-149) 12/04/21 05:19 Cholesterol 135 mg/dL (50-199) 12/04/21 05:19 LDL Cholesterol Direct 70 mg/dL (50-130) 12/04/21 05:19 HDL Cholesterol 48 mg/dL (40-59) 12/04/21 05:19 Cholesterol/HDL Ratio 2.81 % 12/04/21 05:19 TSH 1.110 mlU/mL (0.270-4.200) 12/04/21 05:19 Last Vital Signs Temp 98.8 F 12/12/21 07:40 Pulse 71 12/12/21 09:13 Resp 18 12/12/21 07:40 BP 91/42 12/12/21 09:13 Pulse Ox 94 12/12/21 07:40
[2021-12-12] MEDS: traZODone 50 MG TAB PO SCH (21:10)
[2021-12-13] MEDS: PARoxetine 20 MG TAB PO SCH (09:29)
[2021-12-13] MEDS: MONTELUKAST 10 MG TAB PO SCH (09:29)
[2021-12-13] MEDS: GLIMEPIRIDE 2 MG TAB PO SCH (09:29)
[2021-12-13] MEDS: metFORMIN 500 MG TAB PO SCH (09:29)
[2021-12-13] MEDS: APIXABAN 5 MG TAB PO SCH ×2 (09:30→21:02)
[2021-12-13] MEDS: PANTOPRAZOLE 40 MG TAB PO SCH (09:30)
[2021-12-13] MEDS: carvediloL 6.25 MG TAB PO SCH ×2 (09:30→21:02)
[2021-12-13] MEDS: FAMOTIDINE 20 MG TAB PO SCH (09:30)
[2021-12-13] MEDS: LINAGLIPTIN 5 MG TAB PO SCH (09:30)
[2021-12-13] MEDS: FUROSEMIDE 40 MG TAB PO SCH (09:30)
[2021-12-13] MEDS: FENOFIBRATE 145 MG TAB PO SCH (09:30)
[2021-12-13] MEDS: SPIRONOLACTONE 25 MG TAB PO SCH (10:08)
--- NOTE | 2021-12-13 13:12 | Progress Note ---
Assessment and Plan - Patient Problems (1) Vascular dementia Current Visit: Yes Status: Acute Qualifiers: Dementia behavioral disturbance: with behavioral disturbance Qualified Code(s): F01.51 - Vascular dementia with behavioral disturbance Plan to address problem: Verbal prompting, verbal redirection, benzodiazepine therapy as clinically indicated. (2) GERD (gastroesophageal reflux disease) Current Visit: Yes Status: Chronic Qualifiers: Esophagitis presence: without esophagitis Qualified Code(s): K21.9 - Gastro-esophageal reflux disease without esophagitis Plan to address problem: PPI therapy, supportive care. (3) Hyperlipidemia Current Visit: Yes Status: Chronic Qualifiers: Hyperlipidemia type: mixed hyperlipidemia Qualified Code(s): E78.2 - Mixed hyperlipidemia Plan to address problem: Low-cholesterol diet, lipid panel. (4) Hypertension Current Visit: Yes Status: Chronic Qualifiers: Hypertension type: primary hypertension Qualified Code(s): I10 - Essential (primary) hypertension Plan to address problem: Monitor blood pressure every shift, continue medical management (5) Bipolar disorder Current Visit: Yes Status: Acute Plan to address problem: Continue medical management as per mental health team (6) Cerebral atherosclerosis Current Visit: Yes Status: Acute Plan to address problem: Risk factor reduction, continue antiplatelet therapy, (7) Advance care planning Current Visit: Yes Status: Acute Plan to address problem: Disease education conducted, care plan discussed, diagnoses discussed, prognosis discussed, patient is full code. +30 minutes. History Interval history: 76 YO Male with Vascular Dementia with Behavioral Disturbance, Cerebral Atherosclerosis, HTN, DM, GERD,HLD, Bipolar Disorder, Schizophrenia, currently on therapeutic anticoagulation admitted to [facility] for psychiatric stabilization. Consult placed by Dr. Phillips for medical management. Pt seen and evaluated in recreation room. Patient has diminished cognition but appears to be at baseline level of cognition and function. NO reported nursing events. Hospitalist Physical - Constitutional Vitals: Temp Pulse Resp BP Pulse Ox 97.7 F 94 H 17 113/54 97 12/12/21 19:38 12/13/21 09:30 12/12/21 19:38 12/13/21 10:08 12/12/21 19:38 General appearance: Present: no acute distress, well-nourished Results - Labs CBC & Chem 7: 12/11/21 07:22 12/11/21 07:22 Labs: Laboratory Last Values WBC 5.1 K/mm3 (4.5-11.0) 12/11/21 07: RBC 4.59 M/mm3 (3.65-5.03) 12/11/21 07:22 Hgb 12.2 gm/dl (11.8-15.2) 12/11/21 07:22 Hct 38.2 % (35.5-45.6) 12/11/21 07:22 MCV 83 fl (84-94) L 12/11/21 07: MCH 27 pg (28-32) L 12/11/21 07: MCHC 32 % (32-34) 12/11/21 07: RDW 16.4 % (13.2-15.2) H 12/11/21 07:22 Plt Count 243 K/mm3 (140-440) 12/11/21 07:22 Lymph % (Auto) 19.4 % (13.4-35.0) 12/04/21 05:19 [place] % (Auto) 10.1 % (0.0-7.3) H 12/04/21 05:19 Eos % (Auto) 2.4 % (0.0-4.3) 12/04/21 05:19 Baso % (Auto) 0.5 % (0.0-1.8) 12/04/21 05:19 Lymph # (Auto) 1.2 K/mm3 (1.2-5.4) 12/04/21 05:19 [place] # (Auto) 0.6 K/mm3 (0.0-0.8) 12/04/21 05:19 Eos # (Auto) 0.2 K/mm3 (0.0-0.4) 12/04/21 05:19 Baso # (Auto) 0.0 K/mm3 (0.0-0.1) 12/04/21 05:19 Seg Neutrophils % 67.6 % (40.0-70.0) 12/04/21 05:19 Seg Neutrophils # 4.2 K/mm3 (1.8-7.7) 12/04/21 05:19 Sodium 141 mmol/L (137-145) 12/04/21 05:19 Potassium 3.8 mmol/L (3.6-5.0) 12/04/21 05:19 Chloride 105.4 mmol/L (98-107) 12/04/21 05:19 Carbon Dioxide 24 mmol/L (22-30) 12/04/21 05:19 Anion Gap 15 mmol/L 12/04/21 05:19 BUN 23 mg/dL (9-20) H 12/04/21 05:19 Creatinine 1.1 mg/dL (0.8-1.3) 12/11/21 07:22 Estimated GFR > 60 ml/min 12/11/21 07:22 BUN/Creatinine Ratio 19 % 12/04/21 05:19 Glucose 140 mg/dL (75-100) H 12/04/21 05:19 POC Glucose 77 mg/dL (70-105) 12/13/21 08:07 Hemoglobin A1c 5.7 % (4-6) 12/04/21 05:19 Calcium 9.4 mg/dL (8.4-10.2) 12/04/21 05:19 Total Bilirubin 0.40 mg/dL (0.1-1.2) 12/04/21 05:19 AST 15 units/L (5-40) 12/04/21 05:19 ALT 9 units/L (7-56) 12/04/21 05:19 Alkaline Phosphatase 48 units/L (35-129) 12/04/21 05:19 Total Protein 7.1 g/dL (6.3-8.2) 12/04/21 05:19 Albumin 4.0 g/dL (3.9-5) 12/04/21 05:19 Albumin/Globulin Ratio 1.3 % 12/04/21 05:19 Triglycerides 76 mg/dL (2-149) 12/04/21 05:19 Cholesterol 135 mg/dL (50-199) 12/04/21 05:19 LDL Cholesterol Direct 70 mg/dL (50-130) 12/04/21 05:19 HDL Cholesterol 48 mg/dL (40-59) 12/04/21 05:19 Cholesterol/HDL Ratio 2.81 % 12/04/21 05:19 TSH 1.110 mlU/mL (0.270-4.200) 12/04/21 05:19 [place]/IV: Voiding Method Diaper Active Medications - Current Medications Current Medications: Generic Name Dose Route Start Last Admin Trade Name Freq PRN Reason Stop Dose Admin Apixaban 5 mg 12/05/21 22:00 12/13/21 09:30 Apixaban 5 Mg Tab PO 5 mg Q12HR TANIYA Administration Protocol Atorvastatin Calcium 40 mg 12/04/21 22:00 12/12/21 21:13 Atorvastatin 40 Mg Tab PO 40 mg QHS TANIYA Administration Carvedilol 6.25 mg 12/04/21 10:00 12/13/21 09:30 Carvedilol 6.25 Mg Tab PO 6.25 mg BID TANIYA Administration Famotidine 20 mg 12/04/21 10:00 12/13/21 09:30 Famotidine 20 Mg Tab PO 20 mg QDAY TANIYA Administration Fenofibrate 145 mg 12/04/21 10:00 12/13/21 09:30 Fenofibrate 145 Mg Tab PO 145 mg DAILY TANIYA Administration Furosemide 40 mg 12/04/21 10:00 12/13/21 09:30 Furosemide 40 Mg Tab PO 40 mg QDAY TANIYA Administration Glimepiride 2 mg 12/05/21 08:00 12/13/21 09:29 Glimepiride 2 Mg Tab PO 2 mg QDDIAB TANIYA Administration Linagliptin 5 mg 12/04/21 10:00 12/13/21 09:30 Linagliptin 5 Mg Tab PO 5 mg QDAY TANIYA Administration Metformin HCl 1,000 mg 12/05/21 08:00 12/13/21 09:29 Metformin 500 Mg Tab PO 1,000 mg QDDIAB TANIYA Administration Montelukast Sodium 10 mg 12/04/21 10:00 12/13/21 09:29 Montelukast 10 Mg Tab PO 10 mg QDAY TANIYA Administration Pantoprazole Sodium 40 mg 12/04/21 10:00 12/13/21 09:30 Pantoprazole 40 Mg Tab PO 40 mg QDAY TANIYA Administration Paroxetine HCl 40 mg 12/04/21 10:00 12/13/21 09:29 Paroxetine 20 Mg Tab PO 40 mg QAM TANIYA Administration Spironolactone 25 mg 12/04/21 10:00 12/13/21 10:08 Spironolactone 25 Mg Tab PO Not Given QDAY TANIYA Trazodone HCl 150 mg 12/04/21 22:00 12/12/21 21:10 Trazodone 50 Mg Tab PO 150 mg QHS TANIYA Administration Nutrition/Malnutrition Assess - Dietary Evaluation Nutrition/Malnutrition Findings: Nutrition Notes Start: 12/10/21 12:41 Freq: Status: Active Protocol: Document 12/10/21 12:41 JOSELUIS (Rec: 12/10/21 12:49 [email or web address] [email or web address]) Nutrition Notes Need for Assessment generated from: LOS Initial or Follow up Brief Note Current Diet Regular Height 6 ft 1 in Weight 75.18 kg [place] Body Weight (kg) 83.63 BMI 21.9 Weight Status Underweight Subjective/Other Information Pt screened for LOS. Pt has consumed 100% of meals since admission. Percent of energy/protein needs met: 100% energy 99% pro Burn Absent Trauma Absent Current % PO Good (75-100%) Minimum of two criteria No Is patient on ventilator? No Is Patient Ambulatory and/or Out of Bed Yes REE-([facility]-ambulatory/OOB) [ 2002.884 [id number]] Calculation [facility] for [facility]ations [facility] [employer] [facility] Additional Notes Pro needs 1.2-1.5g/k-113g /day Fluid needs: 1ml/kcal Nutrition Intervention Revisit per MD consult or patient Sign Off request:
[2021-12-13] MEDS: traZODone 50 MG TAB PO SCH (21:01)
[2021-12-14] MEDS: metFORMIN 500 MG TAB PO SCH (07:55)
[2021-12-14] MEDS: GLIMEPIRIDE 2 MG TAB PO SCH (07:56)
[2021-12-14] MEDS: carvediloL 6.25 MG TAB PO SCH ×2 (09:34→21:23)
[2021-12-14] MEDS: PANTOPRAZOLE 40 MG TAB PO SCH (09:35)
[2021-12-14] MEDS: LINAGLIPTIN 5 MG TAB PO SCH (09:35)
[2021-12-14] MEDS: FUROSEMIDE 40 MG TAB PO SCH (09:35)
[2021-12-14] MEDS: PARoxetine 20 MG TAB PO SCH (09:35)
[2021-12-14] MEDS: MONTELUKAST 10 MG TAB PO SCH (09:35)
[2021-12-14] MEDS: SPIRONOLACTONE 25 MG TAB PO SCH (09:35)
[2021-12-14] MEDS: FAMOTIDINE 20 MG TAB PO SCH (09:35)
[2021-12-14] MEDS: APIXABAN 5 MG TAB PO SCH ×2 (09:36→21:20)
[2021-12-14] MEDS: FENOFIBRATE 145 MG TAB PO SCH (09:36)
--- NOTE | 2021-12-14 09:42 | Progress Note ---
Subjective Date of service: 12/13/21 Principal diagnosis: MDD Subjective Comment: 12/13 The patient was seen today. He says he's ready to go home. He denies SI/HI or hallucinations of any kind. 12/12 The patient was seen today. He is just getting out of the shower. He says he slept well and is ready to go home. He denies SI/HI or hallucinations of any kind. 12/11 The patient was seen today. He is pleasant, calm, and cooperative. He says he slept well. He denies SI/HI or hallucinations of any kind. 12/10 The patient was seen today. He is calm, cooperative and pleasant. He smiles when he sees me coming. He tells me he's ready to go home. He denies SI/HI or hallucinations of any kind. The patient says he's been sleeping well. He also says his appetite is good. 12/09/21: The patient seen at breakfast. He reports doing ok. The patient reports sleep and appetite as good. He denies any current suicidal homicidal ideation and denies hallucinations. per nurse , " Last evening the patient walked around the unit smiling. He was pleasant and cooperative but confused. He denies si/hi/ah/vh. His appetite is good and he was medication compliant. Overnight he turned the shower on and flooded his floor. He had a bowel movement in the bathroom floor. He slept after flooding his room for a total of 7 hours." 12/08/21: The patient was seen in his room. He states he is doing well. The patient reports sleep and appetite as good. He denies any current suicidal homicidal ideation and denies hallucinations. 12/07/21: The patient was seen this morning. He is isolative. He states he is doing well. The patient reports sleep and appetite as good. He denies any current suicidal homicidal ideation and denies hallucinations. 12/06/21:The patient was seen this morning resting in bed. He states he is doing alright. The patient states he slept all night. He states depression as " alright." unable to rate. He denies any current suicidal homicidal ideation and denies hallucinations. REVIEW OF SYSTEMS Unable to assess MENTAL STATUS EXAMINATION Unable to assess Assessment and Plan (1) MDD Current Visit: Yes Status: Acute Treatment Plan Patient admitted for inpatient psychiatric evaluation, medication adjustment and close monitoring The patient's behavior, mood, sleep and appetite will be closely monitored. Patient enrolled in individual and group therapeutic sessions and encouraged to attend. Patient provided with a safe and structured environment. Patient's physical health needs will be addressed by the Hospitalist. Hospitalist Consulted Labs including CBC, CMP, Lipid profile and Hemoglobin A1C levels ordered for baseline reference Social Assessment will be completed and the Metal Fabricating Inspector will work with patient and family to ensure a suitable and safe disposition Medication adjustment will be made as clinically indicated Continued home meds Usual Wellness Nondenominational/Preservation: - Start Trazodone 50 mg po QHS & 50 mg po QHS PRN between 10 PM & 2 AM for insomnia - Start Melatonin 5 mg po QHS to promote circadian rhythm The patient agreed on the treatment plan, understood the risk, benefit, alternative treatment, potential consequence of no treatment, and gave informed consent. Estimated days: Post hospital care: primary care provider, psychiatric provider Case staffed with Dr. Dejesus Medications and Allergies Allergies Allergy/AdvReac Type Severity Reaction Status Date / Time No Known Allergies Allergy Unverified 12/03/21 16:09 Home Medications Medication Instructions Recorded Confirmed Last Taken Type Apixaban [Eliquis] 5 mg PO BID 12/04/21 12/04/21 Unknown History Famotidine [Acid-Pep] 20 mg PO QDAY 12/04/21 12/04/21 Unknown History Fenofibrate,Micronized 134 mg PO QDAY 12/04/21 12/04/21 Unknown History [Fenofibrate] Furosemide [Lasix] 40 mg PO QDAY 12/04/21 12/04/21 Unknown History Glimepiride [Amaryl] 2 mg PO QDAY 12/04/21 12/04/21 Unknown History Montelukast [Singulair] 10 mg PO QDAY 12/04/21 12/04/21 Unknown History Pantoprazole Sodium 40 mg PO QDAY 12/04/21 12/04/21 Unknown History Rosuvastatin Calcium [Crestor] 20 mg PO QDAY 12/04/21 12/04/21 Unknown History Sitagliptin Phosphate [Januvia] 100 mg PO QDAY 12/04/21 12/04/21 Unknown History Spironolactone [Aldactone] 25 mg PO QDAY 12/04/21 12/04/21 Unknown History carvediloL [Coreg] 6.25 mg PO BID 12/04/21 12/04/21 Unknown History metFORMIN [Glucophage] 1,000 mg PO QDAY 12/04/21 12/04/21 Unknown History PARoxetine HCL [PARoxetine] 40 mg PO QAM #30 12/13/21 Unknown Rx traZODone [Desyrel] 150 mg PO QHS #90 12/13/21 Unknown Rx traZODone [Desyrel] 150 mg PO QHS #90 tablet 12/13/21 Unknown Rx Active Meds: Active Medications Apixaban (Apixaban 5 Mg Tab) 5 mg PO Q12HR [facility]; Protocol Last Admin: 12/14/21 09:36 Dose: 5 mg Atorvastatin Calcium (Atorvastatin 40 Mg Tab) 40 mg PO QHS [facility] Last Admin: 12/13/21 21:02 Dose: 40 mg Carvedilol (Carvedilol 6.25 Mg Tab) 6.25 mg PO BID [facility] Last Admin: 12/14/21 09:34 Dose: Not Given Famotidine (Famotidine 20 Mg Tab) 20 mg PO QDAY [facility] Last Admin: 12/14/21 09:35 Dose: 20 mg Fenofibrate (Fenofibrate 145 Mg Tab) 145 mg PO DAILY [facility] Last Admin: 12/14/21 09:36 Dose: 145 mg Furosemide (Furosemide 40 Mg Tab) 40 mg PO QDAY [facility] Last Admin: 12/14/21 09:35 Dose: Not Given Glimepiride (Glimepiride 2 Mg Tab) 2 mg PO QDDIAB [facility] Last Admin: 12/14/21 07:56 Dose: 2 mg Linagliptin (Linagliptin 5 Mg Tab) 5 mg PO QDAY [facility] Last Admin: 12/14/21 09:35 Dose: 5 mg Metformin HCl (Metformin 500 Mg Tab) 1,000 mg PO QDDIAB [facility] Last Admin: 12/14/21 07:55 Dose: 1,000 mg Montelukast Sodium (Montelukast 10 Mg Tab) 10 mg PO QDAY [facility] Last Admin: 12/14/21 09:35 Dose: 10 mg Pantoprazole Sodium (Pantoprazole 40 Mg Tab) 40 mg PO QDAY [facility] Last Admin: 12/14/21 09:35 Dose: 40 mg Paroxetine HCl (Paroxetine 20 Mg Tab) 40 mg PO QAM [facility] Last Admin: 12/14/21 09:35 Dose: 40 mg Spironolactone (Spironolactone 25 Mg Tab) 25 mg PO QDAY [facility] Last Admin: 12/14/21 09:35 Dose: Not Given Trazodone HCl (Trazodone 50 Mg Tab) 150 mg PO QHS [facility] Last Admin: 12/13/21 21:01 Dose: 150 mg Results - Results Labs/Vitals: Laboratory Last Values WBC 5.1 K/mm3 (4.5-11.0) 12/11/21 07:22 RBC 4.59 M/mm3 (3.65-5.03) 12/11/21 07:22 Hgb 12.2 gm/dl (11.8-15.2) 12/11/21 07:22 Hct 38.2 % (35.5-45.6) 12/11/21 07:22 MCV 83 fl (84-94) L 12/11/21 07:22 MCH 27 pg (28-32) L 12/11/21 07:22 MCHC 32 % (32-34) 12/11/21 07:22 RDW 16.4 % (13.2-15.2) H 12/11/21 07:22 Plt Count 243 K/mm3 (140-440) 12/11/21 07:22 Lymph % (Auto) 19.4 % (13.4-35.0) 12/04/21 05:19 [place] % (Auto) 10.1 % (0.0-7.3) H 12/04/21 05:19 Eos % (Auto) 2.4 % (0.0-4.3) 12/04/21 05:19 Baso % (Auto) 0.5 % (0.0-1.8) 12/04/21 05:19 Lymph # (Auto) 1.2 K/mm3 (1.2-5.4) 12/04/21 05:19 [place] # (Auto) 0.6 K/mm3 (0.0-0.8) 12/04/21 05:19 Eos # (Auto) 0.2 K/mm3 (0.0-0.4) 12/04/21 05:19 Baso # (Auto) 0.0 K/mm3 (0.0-0.1) 12/04/21 05:19 Seg Neutrophils % 67.6 % (40.0-70.0) 12/04/21 05:19 Seg Neutrophils # 4.2 K/mm3 (1.8-7.7) 12/04/21 05:19 Sodium 141 mmol/L (137-145) 12/04/21 05:19 Potassium 3.8 mmol/L (3.6-5.0) 12/04/21 05:19 Chloride 105.4 mmol/L (98-107) 12/04/21 05:19 Carbon Dioxide 24 mmol/L (22-30) 12/04/21 05:19 Anion Gap 15 mmol/L 12/04/21 05:19 BUN 23 mg/dL (9-20) H 12/04/21 05:19 Creatinine 1.1 mg/dL (0.8-1.3) 12/11/21 07:22 Estimated GFR > 60 ml/min 12/11/21 07:22 BUN/Creatinine Ratio 19 % 12/04/21 05:19 Glucose 140 mg/dL (75-100) H 12/04/21 05:19 POC Glucose 81 mg/dL (70-105) 12/14/21 07:22 Hemoglobin A1c 5.7 % (4-6) 12/04/21 05:19 Calcium 9.4 mg/dL (8.4-10.2) 12/04/21 05:19 Total Bilirubin 0.40 mg/dL (0.1-1.2) 12/04/21 05:19 AST 15 units/L (5-40) 12/04/21 05:19 ALT 9 units/L (7-56) 12/04/21 05:19 Alkaline Phosphatase 48 units/L (35-129) 12/04/21 05:19 Total Protein 7.1 g/dL (6.3-8.2) 12/04/21 05:19 Albumin 4.0 g/dL (3.9-5) 12/04/21 05:19 Albumin/Globulin Ratio 1.3 % 12/04/21 05:19 Triglycerides 76 mg/dL (2-149) 12/04/21 05:19 Cholesterol 135 mg/dL (50-199) 12/04/21 05:19 LDL Cholesterol Direct 70 mg/dL (50-130) 12/04/21 05:19 HDL Cholesterol 48 mg/dL (40-59) 12/04/21 05:19 Cholesterol/HDL Ratio 2.81 % 12/04/21 05:19 TSH 1.110 mlU/mL (0.270-4.200) 12/04/21 05:19 Last Vital Signs Temp 97.6 F 12/14/21 09:14 Pulse 90 12/13/21 21:02 Resp 18 12/14/21 09:14 BP 124/63 12/14/21 09:14 Pulse Ox 97 12/13/21 19:01
--- NOTE | 2021-12-14 09:43 | Progress Note ---
Subjective Date of service: 12/14/21 Principal diagnosis: MDD Subjective Comment: 12/14 The patient was seen today. He is calm, cooperative and pleasant. He denies SI/HI or hallucinations of any kind. He is awaiting placement to ensure continuity of mental wellness and a safe discharge. 12/13 The patient was seen today. He says he's ready to go home. He denies SI/HI or hallucinations of any kind. 12/12 The patient was seen today. He is just getting out of the shower. He says he slept well and is ready to go home. He denies SI/HI or hallucinations of any kind. 12/11 The patient was seen today. He is pleasant, calm, and cooperative. He says he slept well. He denies SI/HI or hallucinations of any kind. 12/10 The patient was seen today. He is calm, cooperative and pleasant. He smile s when he sees me coming. He tells me he's ready to go home. He denies SI/HI or hallucinations of any kind. The patient says he's been sleeping well. He also says his appetite is good. 12/09/21: The patient seen at breakfast. He reports doing ok. The patient reports sleep and appetite as good. He denies any current suicidal homicidal ideation and denies hallucinations. per nurse , " Last evening the patient walked around the unit smiling. He was pleasant and cooperative but confused. He denies si/hi/ah/vh. His appetite is good and he was medication compliant. Overnight he turned the shower on and flooded his floor. He had a bowel movement in the bathroom floor. He slept after flooding his room for a total of 7 hours." 12/08/21: The patient was seen in his room. He states he is doing well. The patient reports sleep and appetite as good. He denies any current suicidal homicidal ideation and denies hallucinations. 12/07/21: The patient was seen this morning. He is isolative. He states he is doing well. The patient reports sleep and appetite as good. He denies any current suicidal homicidal ideation and denies hallucinations. 12/06/21:The patient was seen this morning resting in bed. He states he is doing alright. The patient states he slept all night. He states depression as " alright." unable to rate. He denies any current suicidal homicidal ideation and denies hallucinations. REVIEW OF SYSTEMS Unable to assess MENTAL STATUS EXAMINATION Unable to assess Assessment and Plan (1) MDD Current Visit: Yes Status: Acute Treatment Plan Patient admitted for inpatient psychiatric evaluation, medication adjustment and close monitoring The patient's behavior, mood, sleep and appetite will be closely monitored. Patient enrolled in individual and group therapeutic sessions and encouraged to attend. Patient provided with a safe and structured environment. Patient's physical health needs will be addressed by the Hospitalist. Hospitalist Consulted Labs including CBC, CMP, Lipid profile and Hemoglobin A1C levels ordered for baseline reference Social Assessment will be completed and the [employer] Worker will work with patient and family to ensure a suitable and safe disposition Medication adjustment will be made as clinically indicated Continued home meds Usual Wellness Spiritism/Preservation: - Start Trazodone 50 mg po QHS & 50 mg po QHS PRN between 10 PM & 2 AM for insomnia - Start Melatonin 5 mg po QHS to promote circadian rhythm The patient agreed on the treatment plan, understood the risk, benefit, alternative treatment, potential consequence of no treatment, and gave informed consent. Estimated days: Post hospital care: primary care provider, psychiatric provider Case staffed with Dr. Dejesus Medications and Allergies Allergies Allergy/AdvReac Type Severity Reaction Status Date / Time No Known Allergies Allergy Unverified 12/03/21 16:09 Home Medications Medication Instructions Recorded Confirmed Last Taken Type Apixaban [Eliquis] 5 mg PO BID 12/04/21 12/04/21 Unknown History Famotidine [Acid-Pep] 20 mg PO QDAY 12/04/21 12/04/21 Unknown History Fenofibrate,Micronized 134 mg PO QDAY 12/04/21 12/04/21 Unknown History [Fenofibrate] Furosemide [Lasix] 40 mg PO QDAY 12/04/21 12/04/21 Unknown History Glimepiride [Amaryl] 2 mg PO QDAY 12/04/21 12/04/21 Unknown History Montelukast [Singulair] 10 mg PO QDAY 12/04/21 12/04/21 Unknown History Pantoprazole Sodium 40 mg PO QDAY 12/04/21 12/04/21 Unknown History Rosuvastatin Calcium [Crestor] 20 mg PO QDAY 12/04/21 12/04/21 Unknown History Sitagliptin Phosphate [Januvia] 100 mg PO QDAY 12/04/21 12/04/21 Unknown History Spironolactone [Aldactone] 25 mg PO QDAY 12/04/21 12/04/21 Unknown History carvediloL [Coreg] 6.25 mg PO BID 12/04/21 12/04/21 Unknown History metFORMIN [Glucophage] 1,000 mg PO QDAY 12/04/21 12/04/21 Unknown History PARoxetine HCL [PARoxetine] 40 mg PO QAM #30 12/13/21 Unknown Rx traZODone [Desyrel] 150 mg PO QHS #90 12/13/21 Unknown Rx traZODone [Desyrel] 150 mg PO QHS #90 tablet 12/13/21 Unknown Rx Active Meds: Active Medications Apixaban (Apixaban 5 Mg Tab) 5 mg PO Q12HR [facility]; Protocol Last Admin: 12/14/21 09:36 Dose: 5 mg Atorvastatin Calcium (Atorvastatin 40 Mg Tab) 40 mg PO QHS [facility] Last Admin: 12/13/21 21:02 Dose: 40 mg Carvedilol (Carvedilol 6.25 Mg Tab) 6.25 mg PO BID [facility] Last Admin: 12/14/21 09:34 Dose: Not Given Famotidine (Famotidine 20 Mg Tab) 20 mg PO QDAY [facility] Last Admin: 12/14/21 09:35 Dose: 20 mg Fenofibrate (Fenofibrate 145 Mg Tab) 145 mg PO DAILY [facility] Last Admin: 12/14/21 09:36 Dose: 145 mg Furosemide (Furosemide 40 Mg Tab) 40 mg PO QDAY [facility] Last Admin: 12/14/21 09:35 Dose: Not Given Glimepiride (Glimepiride 2 Mg Tab) 2 mg PO QDDIAB [facility] Last Admin: 12/14/21 07:56 Dose: 2 mg Linagliptin (Linagliptin 5 Mg Tab) 5 mg PO QDAY [facility] Last Admin: 12/14/21 09:35 Dose: 5 mg Metformin HCl (Metformin 500 Mg Tab) 1,000 mg PO QDDIAB [facility] Last Admin: 12/14/21 07:55 Dose: 1,000 mg Montelukast Sodium (Montelukast 10 Mg Tab) 10 mg PO QDAY [facility] Last Admin: 12/14/21 09:35 Dose: 10 mg Pantoprazole Sodium (Pantoprazole 40 Mg Tab) 40 mg PO QDAY [facility] Last Admin: 12/14/21 09:35 Dose: 40 mg Paroxetine HCl (Paroxetine 20 Mg Tab) 40 mg PO QAM [facility] Last Admin: 12/14/21 09:35 Dose: 40 mg Spironolactone (Spironolactone 25 Mg Tab) 25 mg PO QDAY [facility] Last Admin: 12/14/21 09:35 Dose: Not Given Trazodone HCl (Trazodone 50 Mg Tab) 150 mg PO QHS [facility] Last Admin: 12/13/21 21:01 Dose: 150 mg Results - Results Labs/Vitals: Laboratory Last Values WBC 5.1 K/mm3 (4.5-11.0) 12/11/21 07:22 RBC 4.59 M/mm3 (3.65-5.03) 12/11/21 07:22 Hgb 12.2 gm/dl (11.8-15.2) 12/11/21 07:22 Hct 38.2 % (35.5-45.6) 12/11/21 07:22 MCV 83 fl (84-94) L 12/11/21 07:22 MCH 27 pg (28-32) L 12/11/21 07:22 MCHC 32 % (32-34) 12/11/21 07:22 RDW 16.4 % (13.2-15.2) H 12/11/21 07:22 Plt Count 243 K/mm3 (140-440) 12/11/21 07:22 Lymph % (Auto) 19.4 % (13.4-35.0) 12/04/21 05:19 Long % (Auto) 10.1 % (0.0-7.3) H 12/04/21 05:19 Eos % (Auto) 2.4 % (0.0-4.3) 12/04/21 05:19 Baso % (Auto) 0.5 % (0.0-1.8) 12/04/21 05:19 Lymph # (Auto) 1.2 K/mm3 (1.2-5.4) 12/04/21 05:19 Long # (Auto) 0.6 K/mm3 (0.0-0.8) 12/04/21 05:19 Eos # (Auto) 0.2 K/mm3 (0.0-0.4) 12/04/21 05:19 Baso # (Auto) 0.0 K/mm3 (0.0-0.1) 12/04/21 05:19 Seg Neutrophils % 67.6 % (40.0-70.0) 12/04/21 05:19 Seg Neutrophils # 4.2 K/mm3 (1.8-7.7) 12/04/21 05:19 Sodium 141 mmol/L (137-145) 12/04/21 05:19 Potassium 3.8 mmol/L (3.6-5.0) 12/04/21 05:19 Chloride 105.4 mmol/L (98-107) 12/04/21 05:19 Carbon Dioxide 24 mmol/L (22-30) 12/04/21 05:19 Anion Gap 15 mmol/L 12/04/21 05:19 BUN 23 mg/dL (9-20) H 12/04/21 05:19 Creatinine 1.1 mg/dL (0.8-1.3) 12/11/21 07:22 Estimated GFR > 60 ml/min 12/11/21 07:22 BUN/Creatinine Ratio 19 % 12/04/21 05:19 Glucose 140 mg/dL (75-100) H 12/04/21 05:19 POC Glucose 81 mg/dL (70-105) 12/14/21 07:22 Hemoglobin A1c 5.7 % (4-6) 12/04/21 05:19 Calcium 9.4 mg/dL (8.4-10.2) 12/04/21 05:19 Total Bilirubin 0.40 mg/dL (0.1-1.2) 12/04/21 05:19 AST 15 units/L (5-40) 12/04/21 05:19 ALT 9 units/L (7-56) 12/04/21 05:19 Alkaline Phosphatase 48 units/L (35-129) 12/04/21 05:19 Total Protein 7.1 g/dL (6.3-8.2) 12/04/21 05:19 Albumin 4.0 g/dL (3.9-5) 12/04/21 05:19 Albumin/Globulin Ratio 1.3 % 12/04/21 05:19 Triglycerides 76 mg/dL (2-149) 12/04/21 05:19 Cholesterol 135 mg/dL (50-199) 12/04/21 05:19 LDL Cholesterol Direct 70 mg/dL (50-130) 12/04/21 05:19 HDL Cholesterol 48 mg/dL (40-59) 12/04/21 05:19 Cholesterol/HDL Ratio 2.81 % 12/04/21 05:19 TSH 1.110 mlU/mL (0.270-4.200) 12/04/21 05:19 Last Vital Signs Temp 97.6 F 12/14/21 09:14 Pulse 90 12/13/21 21:02 Resp 18 12/14/21 09:14 BP 124/63 12/14/21 09:14 Pulse Ox 97 12/13/21 19:01
[2021-12-14] MEDS: traZODone 50 MG TAB PO SCH (21:14)
[2021-12-14 21:25] VITALS: BP 116/68
--- NOTE | 2021-12-15 09:12 | Discharge Summary ---
Providers - Providers Date of Admission: 12/04/21 03:05 Date of discharge: 12/15/21 Attending physician: KEVIN DAWKINS MD 12/04/21 02:35 Consult to Physician [CONS] Routine Comment: Consulting Provider: NINO RIVAS Physician Instructions: Reason For Exam: H & P 12/08/21 14:54 Consult to Physician [CONS] Routine Comment: Consulting Provider: KENN ABDUL Physician Instructions: Reason For Exam: post dog bite Primary care physician: [employer] Hospitalization Reason for admission: SI, depression, anxiety Admitting Diagnosis: F33.9 - MAJOR DEPRESSIVE DISORDER, RECURRENT, UNSPECIFIED Condition: Stable Hospital course: The patient was provided inpatient psychiatric treatment with safe and supportive environment, group/individual therapy, psychiatric medication, medication adjustment, adverse effect monitor, medical evaluation, medical treatment, social service assessment, social support meeting, placement assessment and psycho-education. The patients mood, cognition, behavior, motivation, compliance to treatment and appreciation on family/social support are improved and stabilized. At the time of discharge, the patient had no suicidal ideas, no homicidal ideas, no aggressive thoughts, no endangering behavior and no debilitating adverse effects. The patient agreed on the treatment plan, understood the risk, benefit, alternative treatment, potential consequence of no treatment, and gave informed consent. 12/15 The patient was seen today. He is smiling. He says he's ready to go home and plant him a garden. The patient denies SI/HI or hallucinations. He will discharge home today. 12/14 The patient was seen today. He is calm, cooperative and pleasant. He denies SI/HI or hallucinations of any kind. He is awaiting placement to ensure continuity of mental wellness and a safe discharge. 12/13 The patient was seen today. He says he's ready to go home. He denies SI/HI or hallucinations of any kind. 12/12 The patient was seen today. He is just getting out of the shower. He says he slept well and is ready to go home. He denies SI/HI or hallucinations of any kind. 12/11 The patient was seen today. He is pleasant, calm, and cooperative. He says he slept well. He denies SI/HI or hallucinations of any kind. 12/10 The patient was seen today. He is calm, cooperative and pleasant. He smil es when he sees me coming. He tells me he's ready to go home. He denies SI/HI or hallucinations of any kind. The patient says he's been sleeping well. He also says his appetite is good. 12/09/21: The patient seen at breakfast. He reports doing ok. The patient reports sleep and appetite as good. He denies any current suicidal homicidal ideation and denies hallucinations. per nurse , " Last evening the patient walked around the unit smiling. He was pleasant and cooperative but confused. He denies si/hi/ah/vh. His appetite is good and he was medication compliant. Overnight he turned the shower on and flooded his floor. He had a bowel movement in the bathroom floor. He slept after flooding his room for a total of 7 ho urs." 12/08/21: The patient was seen in his room. He states he is doing well. The patient reports sleep and appetite as good. He denies any current suicidal homicidal ideation and denies hallucinations. 12/07/21: The patient was seen this morning. He is isolative. He states he is doing well. The patient reports sleep and appetite as good. He denies any current suicidal homicidal ideation and denies hallucinations. 12/06/21:The patient was seen this morning resting in bed. He states he is doing alright. The patient states he slept all night. He states depression as " alright." unable to rate. He denies any current suicidal homicidal ideation and denies hallucinations. Disposition: 01 HOME / SELF CARE / HOMELESS Time spent for discharge: 35 Allergies/Adverse Reactions: Allergies No Known Allergies Allergy (Unverified 12/03/21 16:09) Vital Signs: Last Vital Signs Temp 97.6 F 12/14/21 21:38 Pulse 100 H 12/14/21 21:38 Resp 18 12/14/21 21:38 BP 116/68 12/14/21 21:38 Pulse Ox 97 12/14/21 21:38 Last Lab: Laboratory Last Values WBC 5.1 K/mm3 (4.5-11.0) 12/11/21 07:22 RBC 4.59 M/mm3 (3.65-5.03) 12/11/21 07:22 Hgb 12.2 gm/dl (11.8-15.2) 12/11/21 07: Hct 38.2 % (35.5-45.6) 12/11/21 07: MCV 83 fl (84-94) L 12/11/21 07:22 MCH 27 pg (28-32) L 12/11/21 07: MCHC 32 % (32-34) 12/11/21 07:22 RDW 16.4 % (13.2-15.2) H 12/11/21 07:22 Plt Count 243 K/mm3 (140-440) 12/11/21 07:22 Lymph % (Auto) 19.4 % (13.4-35.0) 12/04/21 05:19 Curry % (Auto) 10.1 % (0.0-7.3) H 12/04/21 05:19 Eos % (Auto) 2.4 % (0.0-4.3) 12/04/21 05:19 Baso % (Auto) 0.5 % (0.0-1.8) 12/04/21 05:19 Lymph # (Auto) 1.2 K/mm3 (1.2-5.4) 12/04/21 05:19 Curry # (Auto) 0.6 K/mm3 (0.0-0.8) 12/04/21 05:19 Eos # (Auto) 0.2 K/mm3 (0.0-0.4) 12/04/21 05:19 Baso # (Auto) 0.0 K/mm3 (0.0-0.1) 12/04/21 05:19 Seg Neutrophils % 67.6 % (40.0-70.0) 12/04/21 05:19 Seg Neutrophils # 4.2 K/mm3 (1.8-7.7) 12/04/21 05:19 Sodium 141 mmol/L (137-145) 12/04/21 05:19 Potassium 3.8 mmol/L (3.6-5.0) 12/04/21 05:19 Chloride 105.4 mmol/L (98-107) 12/04/21 05:19 Carbon Dioxide 24 mmol/L (22-30) 12/04/21 05:19 Anion Gap 15 mmol/L 12/04/21 05:19 BUN 23 mg/dL (9-20) H 12/04/21 05:19 Creatinine 1.1 mg/dL (0.8-1.3) 12/11/21 07:22 Estimated GFR > 60 ml/min 12/11/21 07:22 BUN/Creatinine Ratio 19 % 12/04/21 05:19 Glucose 140 mg/dL (75-100) H 12/04/21 05:19 POC Glucose 73 mg/dL (70-105) 12/15/21 07:52 Hemoglobin A1c 5.7 % (4-6) 12/04/21 05:19 Calcium 9.4 mg/dL (8.4-10.2) 12/04/21 05:19 Total Bilirubin 0.40 mg/dL (0.1-1.2) 12/04/21 05:19 AST 15 units/L (5-40) 12/04/21 05:19 ALT 9 units/L (7-56) 12/04/21 05:19 Alkaline Phosphatase 48 units/L (35-129) 12/04/21 05:19 Total Protein 7.1 g/dL (6.3-8.2) 12/04/21 05:19 Albumin 4.0 g/dL (3.9-5) 12/04/21 05:19 Albumin/Globulin Ratio 1.3 % 12/04/21 05:19 Triglycerides 76 mg/dL (2-149) 12/04/21 05:19 Cholesterol 135 mg/dL (50-199) 12/04/21 05:19 LDL Cholesterol Direct 70 mg/dL (50-130) 12/04/21 05:19 HDL Cholesterol 48 mg/dL (40-59) 12/04/21 05:19 Cholesterol/HDL Ratio 2.81 % 12/04/21 05:19 TSH 1.110 mlU/mL (0.270-4.200) 12/04/21 05:19 Core Measure Documentation - Palliative Care Palliative Care/ Comfort Measures: Not Applicable - Core Measures Any of the following diagnoses?: none Exam - Constitutional Vitals: Temp Pulse Resp BP Pulse Ox 97.6 F 100 H 18 116/68 97 12/14/21 21:38 12/14/21 21:38 12/14/21 21:38 12/14/21 21:38 03/15/22 21:38 General appearance: Present: no acute distress - EENT Eyes: Present: PERRL, EOM intact ENT: hearing intact, clear oral mucosa - Neck Neck: Present: supple, normal ROM - Respiratory Respiratory effort: normal Plan Activity: advance as tolerated Weight Bearing Status: Weight Bear as Tolerated Care Plan Goals: maintain good and stable mental health Assessment: Major Depressive Disorder Follow up with: PRIMARY CARE,MD [Primary Care Provider] - 7 Days Prescriptions: traZODone [Desyrel] 150 mg PO QHS #90 tablet traZODone [Desyrel] 150 mg PO QHS #90 PARoxetine HCL [PARoxetine] 40 mg PO QAM #30
[2021-12-15] MEDS: GLIMEPIRIDE 2 MG TAB PO SCH (09:29)
[2021-12-15] MEDS: metFORMIN 500 MG TAB PO SCH (09:30)
[2021-12-15] MEDS: FAMOTIDINE 20 MG TAB PO SCH (11:08)
[2021-12-15] MEDS: MONTELUKAST 10 MG TAB PO SCH (11:08)
[2021-12-15] MEDS: FUROSEMIDE 40 MG TAB PO SCH (11:09)
[2021-12-15] MEDS: APIXABAN 5 MG TAB PO SCH (11:09)
[2021-12-15] MEDS: FENOFIBRATE 145 MG TAB PO SCH (11:09)
[2021-12-15] MEDS: PARoxetine 20 MG TAB PO SCH (11:09)
[2021-12-15] MEDS: LINAGLIPTIN 5 MG TAB PO SCH (11:10)
[2021-12-15] MEDS: PANTOPRAZOLE 40 MG TAB PO SCH (11:11)
[2021-12-15] MEDS: carvediloL 6.25 MG TAB PO SCH (11:13)
[2021-12-15] MEDS: SPIRONOLACTONE 25 MG TAB PO SCH (11:13)
== END 2021-12-15 18:30 | disposition home or self-care (01) | DRG 885 ==
LOC: 3A 16:07 → UNDOADMIN 16:07 → 5A 12-04 03:05
PROVIDERS: ADMIT Psychiatry & Neurology Psychiatry; ATTEND Psychiatry & Neurology Psychiatry
DX: F33.9 Major depressive disorder, recurrent, unspecified (principal); F01.51 Vascular dementia, unspecified severity, with behavioral disturbance; E11.9 Type 2 diabetes mellitus without complications; I10 Essential (primary) hypertension; K21.9 Gastro-esophageal reflux disease without esophagitis; J45.909 Unspecified asthma, uncomplicated; I67.2 Cerebral atherosclerosis; F41.9 Anxiety disorder, unspecified; E78.5 Hyperlipidemia, unspecified; Z20.822 Contact with and (suspected) exposure to COVID-19; Z82.49 Family history of ischemic heart disease and other diseases of the circulatory system
CPT/HCPCS: 36415; 80053; 80061; 82565; 82962; 83036; 84443; 85025; 85027; 90675; G0378